=== PATIENT | female | born 1950 | race African-American/Black ===

== ENCOUNTER 2016-11-07 01:59 | Emergency (ER) | payer MEDICARE ==
[2016-11-07 02:29] LABS: BASOPHIL 0.4 % (0-2); EOSINOPHIL 2.3 % (0-7); HCT 35.9 % (37.0-47.0); HGB 12.2 g/dl (12.5-16.0); LYMPHOCYTE 42.6 % (15-48); MCH 31.8 pg (25.0-31.0); MCV 93.5 fL (78.0-100.0); MONOCYTE 8.9 % (0-12); MPV 9.3 fL (6.0-9.5); NEUTROPHIL 45.8 % (41-80); PLT 313 K/uL (150-400); RBC 3.84 M/uL (4.20-5.40); RDW 14.3 % (11.5-14.0); WBC 8.2 K/uL (4.0-10.5)
[2016-11-07 02:38] LABS: INR 0.98 (0.9-1.2); PROTHROMBIN TIME 12.6 SECONDS (11.7-14.0); PTT 24.8 SECONDS (23.2-31.4)
[2016-11-07 02:44] LABS: ALBUMIN 4.3 g/dL (3.4-4.8); BILIRUBIN - TOTAL 0.2 mg/dL (0.1-1.0); CREATININE 0.9 mg/dL (0.5-1.0); GLOBULIN (CALCULATION) 3.1 g/dL (2.2-4.2); MAGNESIUM 1.6 mg/dL (1.40-2.10); POTASSIUM 3.5 mmol/L (3.5-5.1); TOTAL PROTEIN 7.4 g/dL (6.4-8.3)
[2016-11-07 02:46] LABS: MYOGLOBIN 36 ng/mL (26-65); PRO-BNP 57 pg/mL (0-125); TROPONIN T < 0.010 ng/mL
== END 2016-11-07 04:37 | disposition home or self-care (01) ==
LOC: FER 01:59
PROVIDERS: Emergency Medicine
DX: F41.9 Anxiety disorder, unspecified (principal); K29.70 Gastritis, unspecified, without bleeding; I25.10 Atherosclerotic heart disease of native coronary artery without angina pectoris; I11.9 Hypertensive heart disease without heart failure; K21.9 Gastro-esophageal reflux disease without esophagitis; F17.210 Nicotine dependence, cigarettes, uncomplicated; Z88.0 Allergy status to penicillin; Z88.5 Allergy status to narcotic agent; Z88.7 Allergy status to serum and vaccine; Z79.82 Long term (current) use of aspirin; Z79.899 Other long term (current) drug therapy
CPT/HCPCS: 36415; 71010; 80053; 82550; 82553; 83735; 83874; 83880; 84484; 85025; 85610; 85730; 93005

== ENCOUNTER 2016-11-20 19:15 | Day surgery (SDCO) | payer MEDICARE ==
[~2016-11-20] VITALS: Ht 167.6 cm; Wt 90.0 kg
[2016-11-20 20:07] LABS: BASOPHIL 0.3 % (0-2); HCT 34.6 % (37.0-47.0); HGB 11.6 g/dl (12.5-16.0); LYMPHOCYTE 39.7 % (15-48); MCH 31.6 pg (25.0-31.0); MCHC 33.5 g/dL (32.0-36.0); MCV 94.3 fL (78.0-100.0); MONOCYTE 7.8 % (0-12); MPV 9.5 fL (6.0-9.5); NEUTROPHIL 49.2 % (41-80); PLT 265 K/uL (150-400); RBC 3.67 M/uL (4.20-5.40); RDW 14.7 % (11.5-14.0); WBC 6.4 K/uL (4.0-10.5)
[2016-11-20 20:17] LABS: INR 1.02 (0.9-1.2); PTT 25.1 SECONDS (23.2-31.4)
[2016-11-20 20:23] LABS: BILIRUBIN - TOTAL 0.2 mg/dL (0.1-1.0); GLOBULIN (CALCULATION) 2.9 g/dL (2.2-4.2); MAGNESIUM 1.45 mg/dL (1.40-2.10); POTASSIUM 3.8 mmol/L (3.5-5.1); TOTAL PROTEIN 6.9 g/dL (6.4-8.3)
[2016-11-20 20:26] LABS: MYOGLOBIN 34 ng/mL (26-65); PRO-BNP 97 pg/mL (0-125); TROPONIN T < 0.010 ng/mL
[2016-11-21 05:20] LABS: BASOPHIL 0.3 % (0-2); EOSINOPHIL 3.1 % (0-7); HCT 33.3 % (37.0-47.0); HGB 11.3 g/dl (12.5-16.0); LYMPHOCYTE 35.2 % (15-48); MCH 31.8 pg (25.0-31.0); MCHC 33.9 g/dL (32.0-36.0); MCV 93.8 fL (78.0-100.0); MONOCYTE 8.3 % (0-12); MPV 9.6 fL (6.0-9.5); NEUTROPHIL 53.1 % (41-80); PLT 248 K/uL (150-400); RBC 3.55 M/uL (4.20-5.40); RDW 14.6 % (11.5-14.0); WBC 5.8 K/uL (4.0-10.5)
[2016-11-21 05:38] LABS: CREATININE 0.8 mg/dL (0.5-1.0); POTASSIUM 3.4 mmol/L (3.5-5.1)
[2016-11-21 05:42] LABS: TROPONIN T < 0.010 ng/mL
[2016-11-21 11:58] LABS: TROPONIN T < 0.010 ng/mL
[2016-11-21] MEDS ORDERED: K-DUR20 MEQ PO (17:08)
[2016-11-21] MEDS ORDERED: ATENOLOL-CHLOR1 EACH PO (17:09)
[2016-11-21] MEDS ORDERED: FLEXERIL10 MG PO (17:09)
[2016-11-21] MEDS ORDERED: TENORMIN50 MG PO (17:09)
[2016-11-21] MEDS ORDERED: ASPIRIN EC81 MG PO (17:10)
[2016-11-21] MEDS ORDERED: CARAFATE S500 MG/TSP PO (17:10)
[2016-11-21] MEDS ORDERED: ZOLOFT50 MG PO (17:11)
[2016-11-21] MEDS ORDERED: SYNTHROID25 MCG PO (17:11)
[2016-11-21] MEDS ORDERED: PREVACID30 M1 PO (17:11)
[2016-11-21] MEDS ORDERED: NORCO 10-325 T1 EACH PO (17:12)
[2016-11-21] MEDS ORDERED: FLOVENT HF120 PUFFS/ INH (17:12)
[2016-11-21] MEDS ORDERED: COMBIVENT RESPIM4 GM INH (17:12)
[2016-11-21] MEDS ORDERED: ZANTAC150 MG PO (17:12)
[2016-11-21] MEDS ORDERED: CARAFATE1 GM PO (17:13)
[2016-11-21] MEDS ORDERED: IMDUR 30MG TABL30 MG PO (17:14)
== END 2016-11-21 15:00 | disposition home or self-care (01) ==
LOC: FER 19:15 → FTCU 11-21 00:30
PROVIDERS: Emergency Medicine; ADMIT Internal Medicine
DX: R07.9 Chest pain, unspecified (principal); I25.10 Atherosclerotic heart disease of native coronary artery without angina pectoris; I10 Essential (primary) hypertension; E87.6 Hypokalemia; E78.5 Hyperlipidemia, unspecified; J44.9 Chronic obstructive pulmonary disease, unspecified; F41.9 Anxiety disorder, unspecified; F32.9 Major depressive disorder, single episode, unspecified; F17.210 Nicotine dependence, cigarettes, uncomplicated; K21.9 Gastro-esophageal reflux disease without esophagitis; K57.90 Diverticulosis of intestine, part unspecified, without perforation or abscess without bleeding; G50.0 Trigeminal neuralgia; Z95.5 Presence of coronary angioplasty implant and graft; Z82.49 Family history of ischemic heart disease and other diseases of the circulatory system; Z88.0 Allergy status to penicillin; Z88.2 Allergy status to sulfonamides; Z88.5 Allergy status to narcotic agent; Z91.09 Other allergy status, other than to drugs and biological substances; Z83.3 Family history of diabetes mellitus; Z79.899 Other long term (current) drug therapy
CPT/HCPCS: 36415; 71010; 80048; 80053; 80061; 82550; 82553; 83036; 83735; 83874; 83880; 84443; 84484; 85025; 85610; 85730; 93005; G0378; J0500; J3010

== ENCOUNTER → 2017-01-31 | Day surgery (SDC) | payer MEDICARE ==
[~2017-01-31] VITALS: Ht 167.6 cm; Wt 85.3 kg
[~2017-01-31] MED LIST: ASPIRIN EC81 MG PO; ATENOLOL-CHLOR1 EACH PO; CARAFATE S500 MG/TSP PO; CARAFATE1 GM PO; COMBIVENT RESPIM4 GM INH; FLEXERIL10 MG PO; FLOVENT HF120 PUFFS/ INH; IMDUR 30MG TABL30 MG PO; K-DUR20 MEQ PO; NORCO 10-325 T1 EACH PO; PREVACID30 M1 PO; SYNTHROID25 MCG PO; TENORMIN50 MG PO; ZANTAC150 MG PO; ZOLOFT50 MG PO
== END | disposition home or self-care (01) ==
LOC: FAS 11:18
DX: K29.50 Unspecified chronic gastritis without bleeding (principal); K44.9 Diaphragmatic hernia without obstruction or gangrene; K57.30 Diverticulosis of large intestine without perforation or abscess without bleeding; K64.8 Other hemorrhoids; I10 Essential (primary) hypertension; J44.9 Chronic obstructive pulmonary disease, unspecified; E03.9 Hypothyroidism, unspecified; K21.9 Gastro-esophageal reflux disease without esophagitis; D64.9 Anemia, unspecified; F17.210 Nicotine dependence, cigarettes, uncomplicated; Z88.0 Allergy status to penicillin; Z88.8 Allergy status to other drugs, medicaments and biological substances; Z79.82 Long term (current) use of aspirin; Z79.899 Other long term (current) drug therapy; Z90.49 Acquired absence of other specified parts of digestive tract; Z98.890 Other specified postprocedural states; Z90.711 Acquired absence of uterus with remaining cervical stump
CPT/HCPCS: 88305; J2704

== ENCOUNTER 2017-02-15 10:14 | Emergency (ER) | payer MEDICARE | END 2017-02-15 13:46 | disposition home or self-care (01) | LOC: FER 10:14 | DX: S96.911A Strain of unspecified muscle and tendon at ankle and foot level, right foot, initial encounter (principal); I10 Essential (primary) hypertension; K21.9 Gastro-esophageal reflux disease without esophagitis; F17.210 Nicotine dependence, cigarettes, uncomplicated; Z88.0 Allergy status to penicillin; Z88.2 Allergy status to sulfonamides; Z88.7 Allergy status to serum and vaccine; Z88.1 Allergy status to other antibiotic agents; Z91.041 Radiographic dye allergy status; Z98.890 Other specified postprocedural states; Z79.899 Other long term (current) drug therapy; Z79.82 Long term (current) use of aspirin; Z90.711 Acquired absence of uterus with remaining cervical stump; W01.198A Fall on same level from slipping, tripping and stumbling with subsequent striking against other object, initial encounter; Y92.009 Unspecified place in unspecified non-institutional (private) residence as the place of occurrence of the external cause | CPT/HCPCS: 73610; 73630; J1100; J1885 ==

== ENCOUNTER 2020-09-28 07:13 | Emergency (ER) | payer OTHER, SELFPAY ==
[~2020-09-28 07:13] MED LIST changes: +ACETAMINOPHEN325 MG PO; +ANTIVERT25 MG PO; +ASPIRIN325 MG PO; +AZITHROMYCIN250 MG PO; +BACTRIM DS TAB1 EACH PO; +COLCRYS0.6 MG PO; +DICLOFENAC SODI75 MG PO; +FLONASE ALLER15.8 ML; +INDOMETHACIN50 MG PO; +MAG-OXIDE 400M400 MG PO; +PERCOCET 5-3251 EACH PO; +PREDNISONE 20MG20 MG PO; +PRILOSEC20 MG PO; +TESSALON PERLE100 MG PO; +ULTRA-LIGHT RO1 EACH XX; +VENTOLIN HFA IN18 GM INH; +VISTARIL50 MG PO; +VITAMIN D3250 MC2 PO; +ZOFRAN4 MG PO; +ZOFRAN8 MG PO
[2020-09-28 08:18] LABS: BASOPHIL 0.5 % (0-2); EOSINOPHIL 1.8 % (0-7); HCT 37.4 % (37.0-47.0); HGB 12.3 g/dl (12.5-16.0); LYMPHOCYTE 46.3 % (15-48); MCH 29.4 pg (25.0-31.0); MCHC 32.9 g/dL (32.0-36.0); MCV 89.5 fL (78.0-100.0); MPV 10.3 fL (6.0-9.5); NEUTROPHIL 45.1 % (41-80); NRBC 0; PLT 223 K/uL (150-400); RBC 4.18 M/uL (4.20-5.40); RDW 14.8 % (11.5-14.0); WBC 7.4 K/uL (4.0-10.5)
[2020-09-28 08:29] LABS: INR 1.09 (0.9-1.2); PROTHROMBIN TIME 13.4 SECONDS (11.4-13.6); PTT 28.2 SECONDS (22.2-34.7)
[2020-09-28 08:31] LABS: D-DIMER 0.64 ug/mLFEU (0.00-0.41)
[2020-09-28 08:35] LABS: ALBUMIN 3.2 g/dL (3.4-5.0); BILIRUBIN - TOTAL 0.3 mg/dL (0.2-1.0); BUN/CREAT RATIO (CALC) 12.2 RATIO; C-REACTIVE PROTEIN 2.6 mg/dL (<=0.90); CREATININE 0.9 mg/dL (0.51-0.95); TOTAL PROTEIN 7.2 g/dL (6.4-8.2); URIC ACID 7.8 mg/dL (2.6-6.2)
[2020-09-28] MEDS ORDERED: MEDROL 4MG DOSEP4 MG PO (10:08)
[2020-09-28] MEDS ORDERED: COLCHICINE0.6 M1 PO (10:08)
== END 2020-09-28 10:54 | disposition home or self-care (01) ==
LOC: FER 07:13
PROVIDERS: Emergency Medicine
DX: M10.061 Idiopathic gout, right knee (principal)
CPT/HCPCS: 36415; 73560; 80053; 84145; 84550; 85025; 85379; 85610; 85730; 86140; 93971; J1170; J2405; J2930; J7030

== ENCOUNTER 2020-10-03 01:49 | Emergency (ER) | payer OTHER, SELFPAY ==
[~2020-10-03 01:49] MED LIST changes: +COLCHICINE0.6 M1 PO; +MEDROL 4MG DOSEP4 MG PO
[2020-10-03 02:57] LABS: BASOPHIL 0.4 % (0-2); EOSINOPHIL 1.6 % (0-7); HCT 36.3 % (37.0-47.0); LYMPHOCYTE 38.5 % (15-48); MCH 29.5 pg (25.0-31.0); MCHC 33.1 g/dL (32.0-36.0); MCV 89.2 fL (78.0-100.0); MONOCYTE 7.7 % (0-12); MPV 10.6 fL (6.0-9.5); NRBC 0; PLT 236 K/uL (150-400); RBC 4.07 M/uL (4.20-5.40); RDW 14.7 % (11.5-14.0); WBC 7.5 K/uL (4.0-10.5)
[2020-10-03 03:01] LABS: ALBUMIN 3.1 g/dL (3.4-5.0); BILIRUBIN - TOTAL 0.3 mg/dL (0.2-1.0); BUN/CREAT RATIO (CALC) 18.1 RATIO; CREATININE 0.94 mg/dL (0.51-0.95); GLOBULIN (CALCULATION) 4.3 g/dL; POTASSIUM 3.6 mmol/L (3.5-5.1); TOTAL PROTEIN 7.4 g/dL (6.4-8.2)
== END 2020-10-03 05:30 | disposition other institution (70) ==
LOC: FER 01:49
PROVIDERS: Emergency Medicine
DX: R00.2 Palpitations (principal); I21.4 Non-ST elevation (NSTEMI) myocardial infarction; R79.89 Other specified abnormal findings of blood chemistry; I45.10 Unspecified right bundle-branch block; M25.561 Pain in right knee; J45.909 Unspecified asthma, uncomplicated; I50.9 Heart failure, unspecified; F17.200 Nicotine dependence, unspecified, uncomplicated; Z88.5 Allergy status to narcotic agent; Z88.7 Allergy status to serum and vaccine; Z91.048 Other nonmedicinal substance allergy status; Z79.82 Long term (current) use of aspirin; Z79.899 Other long term (current) drug therapy; Z95.5 Presence of coronary angioplasty implant and graft
CPT/HCPCS: 36415; 71045; 80053; 84484; 85025; 85379; 93005; J1644

== ENCOUNTER 2020-10-14 22:53 | Day surgery (SDCO) | payer OTHER, SELFPAY ==
[2020-10-14 23:19] LABS: BASOPHIL 0.6 % (0-2); EOSINOPHIL 1.5 % (0-7); HCT 35.5 % (37.0-47.0); HGB 11.8 g/dl (12.5-16.0); LYMPHOCYTE 47.9 % (15-48); MCH 29.5 pg (25.0-31.0); MCHC 33.2 g/dL (32.0-36.0); MCV 88.8 fL (78.0-100.0); MONOCYTE 6.8 % (0-12); MPV 10.1 fL (6.0-9.5); NEUTROPHIL 42.9 % (41-80); NRBC 0; PLT 262 K/uL (150-400); RDW 14.6 % (11.5-14.0); WBC 7.8 K/uL (4.0-10.5)
[2020-10-14 23:25] LABS: INR 1.06 (0.9-1.2); PROTHROMBIN TIME 13.1 SECONDS (11.4-13.6); PTT 27.8 SECONDS (22.2-34.7)
[2020-10-14 23:33] LABS: ALBUMIN 3.2 g/dL (3.4-5.0); BILIRUBIN - TOTAL 0.2 mg/dL (0.2-1.0); BUN/CREAT RATIO (CALC) 14.9 RATIO; CREATININE 0.87 mg/dL (0.51-0.95); GLOBULIN (CALCULATION) 4.2 g/dL; TOTAL PROTEIN 7.4 g/dL (6.4-8.2)
[2020-10-14 23:46] LABS: POTASSIUM 4.7 mmol/L (3.5-5.1)
[2020-10-15] MEDS ORDERED: COREG 6.25MG6.25 MG PO (03:21)
[2020-10-15] MEDS ORDERED: PLAVIX75 MG PO (03:22)
[2020-10-15] MEDS ORDERED: ALLOPURINOL100 MG PO (03:24)
[2020-10-15] MEDS ORDERED: ASPIRIN EC81 MG PO (03:25)
[2020-10-15] MEDS ORDERED: LIPITOR40 MG PO (03:25)
[2020-10-15] MEDS ORDERED: LASIX40 MG PO (03:30)
[2020-10-15] MEDS ORDERED: ZESTRIL2.5 MG PO (03:31)
[2020-10-15] MEDS ORDERED: POTASSIUM CHLO20 ME2 PO (03:33)
[2020-10-15] MEDS ORDERED: ANTIVERT25 MG PO (03:38)
[2020-10-15] MEDS ORDERED: VOLTAREN100 GM TOP (04:28)
[2020-10-15 05:22] LABS: BUN/CREAT RATIO (CALC) 14.9 RATIO; CREATININE 0.87 mg/dL (0.51-0.95); POTASSIUM 4.9 mmol/L (3.5-5.1)
[2020-10-15 09:01] LABS: BUN/CREAT RATIO (CALC) 16.3 RATIO; CREATININE 0.86 mg/dL (0.51-0.95); POTASSIUM 4.8 mmol/L (3.5-5.1)
--- NOTE | 2020-10-15 11:30 | NUR ---
REPORTS SHE LIVES WITH HER SON; PT REPORTS SHE IS INDEPENDENT; PLEASE ADVISE OF ANY DISCHARGE NEEDS
[2020-10-15 13:07] LABS: BUN/CREAT RATIO (CALC) 14.8 RATIO; CREATININE 0.88 mg/dL (0.51-0.95); POTASSIUM 4.4 mmol/L (3.5-5.1)
[2020-10-16 03:48] LABS: BASOPHIL 0.5 % (0-2); EOSINOPHIL 1.2 % (0-7); HCT 31.9 % (37.0-47.0); HGB 10.6 g/dl (12.5-16.0); LYMPHOCYTE 48.5 % (15-48); MCH 29.7 pg (25.0-31.0); MCHC 33.2 g/dL (32.0-36.0); MCV 89.4 fL (78.0-100.0); MONOCYTE 8.3 % (0-12); MPV 10.3 fL (6.0-9.5); NEUTROPHIL 41.3 % (41-80); NRBC 0; PLT 235 K/uL (150-400); RBC 3.57 M/uL (4.20-5.40); RDW 14.7 % (11.5-14.0); WBC 5.7 K/uL (4.0-10.5)
[2020-10-16 04:40] LABS: BUN/CREAT RATIO (CALC) 14.6 RATIO; CREATININE 0.96 mg/dL (0.51-0.95); POTASSIUM 4.7 mmol/L (3.5-5.1)
[2020-10-16] MEDS ORDERED: PROTONIX 40MG T40 MG PO (12:55)
[2020-10-16] MEDS ORDERED: ISOSORBIDE MONO60 MG PO (12:55)
[2020-10-16] MEDS ORDERED: MAALOX MAXIMUM355 ML PO (12:55)
[2020-10-16] MEDS ORDERED: PRILOSEC20 MG PO (13:11)
--- NOTE | 2020-10-16 14:12 | NUR ---
IV DCD , DISCHARGE INSTRUCTIONS GIVEN TO PATIENT, VERBALIZED UNDERSTANDING OF NEW MEDICATIONS AND SCHEDULE OF CURRENT MEDS. DISCHARGED VIA WHEELCHAIR TO MEET DAUGHTER AT ER DOOR.
== END 2020-10-16 13:27 | disposition home or self-care (01) ==
LOC: FER 22:53 → FICU 10-15 02:15
PROVIDERS: Emergency Medicine; Hospitalist; ADMIT Internal Medicine
DX: R07.2 Precordial pain (principal); I25.119 Atherosclerotic heart disease of native coronary artery with unspecified angina pectoris; I11.9 Hypertensive heart disease without heart failure; J98.11 Atelectasis; D64.9 Anemia, unspecified; E87.1 Hypo-osmolality and hyponatremia; E78.00 Pure hypercholesterolemia, unspecified; Z79.899 Other long term (current) drug therapy; F17.210 Nicotine dependence, cigarettes, uncomplicated; J44.9 Chronic obstructive pulmonary disease, unspecified; K21.9 Gastro-esophageal reflux disease without esophagitis; Z88.0 Allergy status to penicillin; Z20.822 Contact with and (suspected) exposure to COVID-19; Z87.19 Personal history of other diseases of the digestive system; Z95.818 Presence of other cardiac implants and grafts; Z88.2 Allergy status to sulfonamides; Z88.7 Allergy status to serum and vaccine; Z88.8 Allergy status to other drugs, medicaments and biological substances; Z88.6 Allergy status to analgesic agent; Z91.012 Allergy to eggs; Z86.69 Personal history of other diseases of the nervous system and sense organs
CPT/HCPCS: 36415; 71045; 71275; 80048; 80053; 80061; 82150; 83690; 83735; 84484; 85025; 85610; 85730; 93005; C9113; G0378; J1170; J1956; J2405; Q9967; U0002

== ENCOUNTER 2020-10-28 21:23 | Emergency (ER) | payer OTHER, SELFPAY ==
[~2020-10-28 21:23] MED LIST changes: +ALLOPURINOL100 MG PO; +COREG 6.25MG6.25 MG PO; +ISOSORBIDE MONO60 MG PO; +LASIX40 MG PO; +LIPITOR40 MG PO; +MAALOX MAXIMUM355 ML PO; +PLAVIX75 MG PO; +POTASSIUM CHLO20 ME2 PO; +PROTONIX 40MG T40 MG PO; +VOLTAREN100 GM TOP; +ZESTRIL2.5 MG PO
[2020-10-28 22:07] LABS: BASOPHIL 0.5 % (0-2); EOSINOPHIL 1.4 % (0-7); HCT 34.6 % (37.0-47.0); HGB 11.4 g/dl (12.5-16.0); LYMPHOCYTE 39.1 % (15-48); MCH 29.4 pg (25.0-31.0); MCHC 32.9 g/dL (32.0-36.0); MCV 89.2 fL (78.0-100.0); MONOCYTE 9.1 % (0-12); MPV 9.8 fL (6.0-9.5); NEUTROPHIL 49.6 % (41-80); NRBC 0; PLT 260 K/uL (150-400); RBC 3.88 M/uL (4.20-5.40); WBC 8.9 K/uL (4.0-10.5)
[2020-10-28 22:16] LABS: INR 1.12 (0.9-1.2); PROTHROMBIN TIME 13.7 SECONDS (11.4-13.6)
[2020-10-28 22:17] LABS: PTT 29.2 SECONDS (22.2-34.7)
[2020-10-28 22:26] LABS: ALBUMIN 3.4 g/dL (3.4-5.0); BILIRUBIN - TOTAL 0.3 mg/dL (0.2-1.0); CREATININE 0.91 mg/dL (0.51-0.95); POTASSIUM 4.6 mmol/L (3.5-5.1); TOTAL PROTEIN 7.4 g/dL (6.4-8.2)
[2020-10-29] MEDS ORDERED: BENTYL10 MG PO (02:51)
[2020-10-29] MEDS ORDERED: GAS RELIEF 8080 MG PO (02:51)
== END 2020-10-29 03:05 | disposition home or self-care (01) ==
LOC: FER 21:23
PROVIDERS: Emergency Medicine Emergency Medical Services
DX: R10.13 Epigastric pain (principal); E87.1 Hypo-osmolality and hyponatremia; I45.10 Unspecified right bundle-branch block; I25.2 Old myocardial infarction; F17.200 Nicotine dependence, unspecified, uncomplicated; Z90.49 Acquired absence of other specified parts of digestive tract; Z90.710 Acquired absence of both cervix and uterus; Z95.5 Presence of coronary angioplasty implant and graft; Z88.5 Allergy status to narcotic agent; Z88.7 Allergy status to serum and vaccine; Z88.0 Allergy status to penicillin; Z79.899 Other long term (current) drug therapy; Z79.02 Long term (current) use of antithrombotics/antiplatelets
CPT/HCPCS: 36415; 71045; 80053; 83690; 84484; 85025; 85610; 85730; 93005; J2405; Q9967

== ENCOUNTER 2020-11-10 00:57 | Inpatient (IN) | payer OTHER ==
[~2020-11-10 00:57] MED LIST changes: +BENTYL10 MG PO; +GAS RELIEF 8080 MG PO
[2020-11-10 02:16] LABS: BASOPHIL 0.6 % (0-2); EOSINOPHIL 1.8 % (0-7); HCT 32.6 % (37.0-47.0); HGB 11.1 g/dl (12.5-16.0); LYMPHOCYTE 39.1 % (15-48); MCH 29.8 pg (25.0-31.0); MCV 87.6 fL (78.0-100.0); MONOCYTE 7.7 % (0-12); MPV 9.6 fL (6.0-9.5); NEUTROPHIL 50.7 % (41-80); NRBC 0; PLT 289 K/uL (150-400); RBC 3.72 M/uL (4.20-5.40); RDW 15.1 % (11.5-14.0)
[2020-11-10 02:22] LABS: BILIRUBIN NEGATIVE (NEGATIVE); BLOOD NEGATIVE Ery/uL (NEGATIVE); CLARITY CLEAR (CLEAR); COLOR YELLOW (YELLOW); GLUCOSE (U) NORMAL (NORMAL); LEUKOCYTES NEGATIVE Leu/uL (NEGATIVE); NITRITE NEGATIVE (NEGATIVE); PROTEIN NEGATIVE (NEGATIVE); UROBILINOGEN 0.2 mg/dL (0.2-1.0); pH 7.5 (5.0-9.0)
[2020-11-10 04:54] LABS: ALBUMIN 3.1 g/dL (3.4-5.0); BILIRUBIN - TOTAL 0.3 mg/dL (0.2-1.0); BUN/CREAT RATIO (CALC) 14.1 RATIO; C-REACTIVE PROTEIN 1.1 mg/dL (<=0.90); CREATININE 0.92 mg/dL (0.51-0.95); FT4 (FREE T4) 1.2 ng/dL (0.76-1.46); GLOBULIN (CALCULATION) 4.1 g/dL; POTASSIUM 4.3 mmol/L (3.5-5.1); TOTAL PROTEIN 7.2 g/dL (6.4-8.2)
[2020-11-10] MEDS ORDERED: ULORIC40 MG PO (07:47)
[2020-11-10 08:29] LABS: BUN/CREAT RATIO (CALC) 12.6 RATIO; CREATININE 0.87 mg/dL (0.51-0.95); MAGNESIUM 1.6 mg/dL (1.8-2.4); PHOSPHORUS 3.4 mg/dL (2.6-4.7); POTASSIUM 4.4 mmol/L (3.5-5.1)
[2020-11-11 08:15] LABS: BUN/CREAT RATIO (CALC) 13.8 RATIO; CREATININE 0.87 mg/dL (0.51-0.95); POTASSIUM 4.2 mmol/L (3.5-5.1)
[2020-11-11 08:17] LABS: HCT 34.7 % (37.0-47.0); HGB 11.7 g/dl (12.5-16.0); MCH 29.3 pg (25.0-31.0); MCHC 33.7 g/dL (32.0-36.0); MPV 9.6 fL (6.0-9.5); RBC 3.99 M/uL (4.20-5.40); RDW 14.7 % (11.5-14.0); WBC 5.6 K/uL (4.0-10.5)
[2020-11-11] MEDS ORDERED: LOSARTAN POTASS25 MG PO (09:31)
[2020-11-11] MEDS ORDERED: TESSALON PERLE100 M1 PO (09:34)
--- NOTE | 2020-11-11 10:27 | NUR ---
11/11/20 Ms. Mcmullen and her son share a home together. She was independent in the home prior to admission. A referral was made to A per patient choice; affliation explained.
== END 2020-11-11 11:30 | disposition home health service (06) | DRG 641 ==
LOC: FER 00:57 → FICU 05:58
PROVIDERS: Emergency Medicine Emergency Medical Services; Hospitalist; ADMIT Internal Medicine
DX: E87.1 Hypo-osmolality and hyponatremia (principal); Z20.822 Contact with and (suspected) exposure to COVID-19; R77.8 Other specified abnormalities of plasma proteins; R10.13 Epigastric pain; I25.10 Atherosclerotic heart disease of native coronary artery without angina pectoris; E78.5 Hyperlipidemia, unspecified; J44.9 Chronic obstructive pulmonary disease, unspecified; F41.9 Anxiety disorder, unspecified; F32.9 Major depressive disorder, single episode, unspecified; K57.90 Diverticulosis of intestine, part unspecified, without perforation or abscess without bleeding; F17.210 Nicotine dependence, cigarettes, uncomplicated; I10 Essential (primary) hypertension; K21.9 Gastro-esophageal reflux disease without esophagitis; I45.10 Unspecified right bundle-branch block; I25.2 Old myocardial infarction; Z95.5 Presence of coronary angioplasty implant and graft; Z79.82 Long term (current) use of aspirin; Z79.02 Long term (current) use of antithrombotics/antiplatelets; Z79.51 Long term (current) use of inhaled steroids; Z79.899 Other long term (current) drug therapy; Z88.0 Allergy status to penicillin; Z88.2 Allergy status to sulfonamides; Z88.5 Allergy status to narcotic agent; Z88.1 Allergy status to other antibiotic agents; Z91.012 Allergy to eggs; Z88.7 Allergy status to serum and vaccine; Z88.8 Allergy status to other drugs, medicaments and biological substances; Z98.890 Other specified postprocedural states; Z90.710 Acquired absence of both cervix and uterus; Z90.49 Acquired absence of other specified parts of digestive tract
CPT/HCPCS: 36415; 71045; 80048; 80053; 81003; 82607; 82746; 83605; 83690; 83735; 84100; 84439; 84443; 84484; 85025; 86140; 93005; 94010; 94640; J1170; J1650; J2405; J7030; J7120; U0002

== ENCOUNTER 2020-11-27 00:41 | Emergency (ER) | payer OTHER, SELFPAY ==
[~2020-11-27 00:41] MED LIST changes: +LOSARTAN POTASS25 MG PO; +TESSALON PERLE100 M1 PO; +ULORIC40 MG PO
[2020-11-27 01:15] LABS: BASOPHIL 0.7 % (0-2); EOSINOPHIL 3.3 % (0-7); HGB 11.2 g/dl (12.5-16.0); LYMPHOCYTE 29.9 % (15-48); MCH 29.2 pg (25.0-31.0); MCHC 32.9 g/dL (32.0-36.0); MCV 88.8 fL (78.0-100.0); MONOCYTE 7.5 % (0-12); MPV 9.9 fL (6.0-9.5); NEUTROPHIL 58.4 % (41-80); NRBC 0; PLT 309 K/uL (150-400); RBC 3.83 M/uL (4.20-5.40); RDW 15.6 % (11.5-14.0); WBC 8.8 K/uL (4.0-10.5)
[2020-11-27 01:26] LABS: ALBUMIN 2.9 g/dL (3.4-5.0); BILIRUBIN - TOTAL 0.2 mg/dL (0.2-1.0); BUN/CREAT RATIO (CALC) 15.8 RATIO; CREATININE 0.76 mg/dL (0.51-0.95); POTASSIUM 4.3 mmol/L (3.5-5.1); TOTAL PROTEIN 7.9 g/dL (6.4-8.2)
== END 2020-11-27 03:53 | disposition home or self-care (01) ==
LOC: FER 00:41
PROVIDERS: Emergency Medicine
DX: R07.89 Other chest pain (principal); R05 Cough; R06.2 Wheezing; I45.10 Unspecified right bundle-branch block; I10 Essential (primary) hypertension; I25.10 Atherosclerotic heart disease of native coronary artery without angina pectoris; E78.5 Hyperlipidemia, unspecified; J44.9 Chronic obstructive pulmonary disease, unspecified; F17.200 Nicotine dependence, unspecified, uncomplicated; Z98.890 Other specified postprocedural states; Z79.899 Other long term (current) drug therapy; Z79.82 Long term (current) use of aspirin; Z79.02 Long term (current) use of antithrombotics/antiplatelets; Z87.19 Personal history of other diseases of the digestive system
CPT/HCPCS: 36415; 71045; 80053; 83605; 83880; 84484; 85025; 87040; 93005; J0780; J1885

== ENCOUNTER 2020-12-04 03:20 | Emergency (ER) | payer OTHER, SELFPAY ==
[2020-12-04 04:15] LABS: BASOPHIL 0.4 % (0-2); EOSINOPHIL 1.1 % (0-7); HCT 33.8 % (37.0-47.0); HGB 11.3 g/dl (12.5-16.0); LYMPHOCYTE 34.2 % (15-48); MCH 29.4 pg (25.0-31.0); MCHC 33.4 g/dL (32.0-36.0); MONOCYTE 8.5 % (0-12); MPV 9.7 fL (6.0-9.5); NEUTROPHIL 55.5 % (41-80); NRBC 0; PLT 317 K/uL (150-400); RBC 3.84 M/uL (4.20-5.40); RDW 15.8 % (11.5-14.0); WBC 9.2 K/uL (4.0-10.5)
[2020-12-04 04:18] LABS: BILIRUBIN NEGATIVE (NEGATIVE); BLOOD NEGATIVE Ery/uL (NEGATIVE); CLARITY CLEAR (CLEAR); COLOR YELLOW (YELLOW); GLUCOSE (U) NORMAL (NORMAL); LEUKOCYTES NEGATIVE Leu/uL (NEGATIVE); NITRITE NEGATIVE (NEGATIVE); PROTEIN NEGATIVE (NEGATIVE); UROBILINOGEN 0.2 mg/dL (0.2-1.0); pH 6.5 (5.0-9.0)
[2020-12-04 04:42] LABS: BILIRUBIN - TOTAL 0.2 mg/dL (0.2-1.0); BUN/CREAT RATIO (CALC) 17.2 RATIO; CREATININE 0.99 mg/dL (0.51-0.95); GLOBULIN (CALCULATION) 4.7 g/dL; MAGNESIUM 1.9 mg/dL (1.8-2.4); POTASSIUM 4.4 mmol/L (3.5-5.1); TOTAL PROTEIN 7.7 g/dL (6.4-8.2)
== END 2020-12-04 07:41 | disposition home or self-care (01) ==
LOC: FER 03:20
PROVIDERS: Emergency Medicine
DX: J06.9 Acute upper respiratory infection, unspecified (principal); H92.02 Otalgia, left ear; R11.2 Nausea with vomiting, unspecified; R14.0 Abdominal distension (gaseous); I10 Essential (primary) hypertension; I25.10 Atherosclerotic heart disease of native coronary artery without angina pectoris; E11.9 Type 2 diabetes mellitus without complications; F17.210 Nicotine dependence, cigarettes, uncomplicated; Z88.0 Allergy status to penicillin; Z88.2 Allergy status to sulfonamides; Z88.5 Allergy status to narcotic agent; Z88.7 Allergy status to serum and vaccine; Z88.1 Allergy status to other antibiotic agents; Z20.822 Contact with and (suspected) exposure to COVID-19
CPT/HCPCS: 36415; 80053; 81003; 83605; 83690; 83735; 84145; 84484; 85025; 93005; J1170; J2765; J3490; J7030; U0002

== ENCOUNTER 2020-12-16 03:26 | Inpatient (IN) | payer OTHER ==
[2020-12-16 04:34] LABS: BASOPHIL 0.3 % (0-2); EOSINOPHIL 1.5 % (0-7); HCT 34.5 % (37.0-47.0); HGB 11.5 g/dl (12.5-16.0); LYMPHOCYTE 25.9 % (15-48); MCH 29.3 pg (25.0-31.0); MCHC 33.3 g/dL (32.0-36.0); MONOCYTE 7.6 % (0-12); MPV 10.1 fL (6.0-9.5); NEUTROPHIL 64.5 % (41-80); NRBC 0; PLT 259 K/uL (150-400); RBC 3.92 M/uL (4.20-5.40); RDW 15.8 % (11.5-14.0); WBC 8.7 K/uL (4.0-10.5)
[2020-12-16 04:46] LABS: ALBUMIN 2.9 g/dL (3.4-5.0); BILIRUBIN - TOTAL 0.2 mg/dL (0.2-1.0); BUN/CREAT RATIO (CALC) 10.8 RATIO; CREATININE 0.93 mg/dL (0.51-0.95); GLOBULIN (CALCULATION) 4.1 g/dL; POTASSIUM 4.2 mmol/L (3.5-5.1)
[2020-12-16 06:04] LABS: CORONAVIRUS 2019 SARS-COV-2 NEGATIVE (NEGATIVE); INFLUENZA A NAA NEGATIVE (NEGATIVE)
[2020-12-16] MEDS ORDERED: COZAAR25 MG PO (07:23)
[2020-12-16] MEDS ORDERED: PLAVIX75 MG PO (07:23)
[2020-12-16] MEDS ORDERED: COREG 6.25MG6.25 MG PO (07:24)
[2020-12-16] MEDS ORDERED: LASIX40 MG PO (07:25)
[2020-12-16] MEDS ORDERED: TESSALON PERLE100 M1 PO (07:25)
[2020-12-16] MEDS ORDERED: ASPIRIN EC81 MG PO (07:26)
[2020-12-16] MEDS ORDERED: ZOFRAN4 M1 PO (07:26)
[2020-12-16] MEDS ORDERED: PRILOSEC20 MG PO (07:27)
[2020-12-16] MEDS ORDERED: ISOSORBIDE MONO10 MG PO (07:28)
[2020-12-16] MEDS ORDERED: MAG-OXIDE 400M400 MG PO (07:29)
[2020-12-16] MEDS ORDERED: FLONASE ALLER15.8 ML (07:29)
[2020-12-16] MEDS ORDERED: ZOLOFT50 MG PO (07:29)
[2020-12-16] MEDS ORDERED: NORCO 5-325 TA1 EACH PO (07:31)
[2020-12-16] MEDS ORDERED: ANTIVERT25 MG PO (07:32)
[2020-12-16] MEDS ORDERED: ULORIC40 MG PO (07:32)
[2020-12-16] MEDS ORDERED: IPRATROPIUM0.2 MG/ML INH (07:34)
[2020-12-16] MEDS ORDERED: VENTOLIN (1.25 MG/3 INH (07:35)
[2020-12-16 07:46] LABS: LACTIC ACID 1.3 mmol/L (0.4-1.9)
[2020-12-17 05:52] LABS: BASOPHIL 0.4 % (0-2); EOSINOPHIL 1.6 % (0-7); HGB 11.1 g/dl (12.5-16.0); LYMPHOCYTE 33.4 % (15-48); MCH 29.8 pg (25.0-31.0); MCHC 33.6 g/dL (32.0-36.0); MCV 88.5 fL (78.0-100.0); MONOCYTE 7.8 % (0-12); MPV 9.9 fL (6.0-9.5); NEUTROPHIL 56.6 % (41-80); NRBC 0; PLT 202 K/uL (150-400); RBC 3.73 M/uL (4.20-5.40); RDW 15.5 % (11.5-14.0); WBC 5.7 K/uL (4.0-10.5)
[2020-12-17 06:19] LABS: ALBUMIN 2.5 g/dL (3.4-5.0); BILIRUBIN - TOTAL 0.3 mg/dL (0.2-1.0); BUN/CREAT RATIO (CALC) 12.8 RATIO; CREATININE 0.86 mg/dL (0.51-0.95); POTASSIUM 3.8 mmol/L (3.5-5.1); TOTAL PROTEIN 6.5 g/dL (6.4-8.2)
--- NOTE | 2020-12-17 14:43 | NUR ---
PT. RESIDES WITH SON. PT. WANTS OUTPT THERAPY AT [facility]. APPT HAS NOT BEEN MADE THERE IS NO D/C DATE.
[2020-12-19 05:47] LABS: BASOPHIL 0.3 % (0-2); EOSINOPHIL 1.3 % (0-7); HCT 33.1 % (37.0-47.0); HGB 10.9 g/dl (12.5-16.0); LYMPHOCYTE 34.5 % (15-48); MCH 28.7 pg (25.0-31.0); MCHC 32.9 g/dL (32.0-36.0); MCV 87.1 fL (78.0-100.0); MONOCYTE 7.9 % (0-12); MPV 9.7 fL (6.0-9.5); NEUTROPHIL 55.7 % (41-80); NRBC 0; PLT 221 K/uL (150-400); RDW 15.4 % (11.5-14.0); WBC 6.7 K/uL (4.0-10.5)
[2020-12-19 06:02] LABS: BUN/CREAT RATIO (CALC) 14.7 RATIO; CREATININE 0.75 mg/dL (0.51-0.95); MAGNESIUM 1.6 mg/dL (1.8-2.4); POTASSIUM 4.1 mmol/L (3.5-5.1)
[2020-12-20 04:26] LABS: BASOPHIL 0.3 % (0-2); EOSINOPHIL 1.4 % (0-7); HCT 32.7 % (37.0-47.0); HGB 10.9 g/dl (12.5-16.0); LYMPHOCYTE 33.2 % (15-48); MCH 29.4 pg (25.0-31.0); MCHC 33.3 g/dL (32.0-36.0); MCV 88.1 fL (78.0-100.0); MONOCYTE 8.2 % (0-12); MPV 9.5 fL (6.0-9.5); NEUTROPHIL 56.5 % (41-80); NRBC 0; PLT 219 K/uL (150-400); RBC 3.71 M/uL (4.20-5.40); RDW 15.8 % (11.5-14.0); WBC 7.3 K/uL (4.0-10.5)
[2020-12-20 04:47] LABS: BUN/CREAT RATIO (CALC) 17.3 RATIO; CREATININE 0.81 mg/dL (0.51-0.95); MAGNESIUM 2.1 mg/dL (1.8-2.4); POTASSIUM 4.2 mmol/L (3.5-5.1); VANCOMYCIN, TROUGH 16.4 ug/mL (10-20)
--- NOTE | 2020-12-20 15:59 | NUR ---
DR. NGUYEN IS RECOMMENDING PT. TO D/C WITH HH FOR IV ABX. ADVISED DR. NGUYEN THAT PT. WILL NEED A PICC LINE SHE HAS A PERIPHERAL IV.
--- NOTE | 2020-12-21 00:46 | NUR ---
Ida TAYLOR APRN NOTIFIED OF PT REQUESTING MED FOR YEAST INF.
--- NOTE | 2020-12-21 00:47 | NUR ---
2330 K BRANDON FLETCHER NOTIFIED OF PT REQUESTING ATIVAN
[2020-12-21 06:16] LABS: HCT 33.6 % (37.0-47.0); HGB 10.9 g/dl (12.5-16.0); MCH 29.7 pg (25.0-31.0); MCHC 32.4 g/dL (32.0-36.0); MCV 91.6 fL (78.0-100.0); MPV 9.7 fL (6.0-9.5); RBC 3.67 M/uL (4.20-5.40); WBC 6.7 K/uL (4.0-10.5)
[2020-12-21 06:41] LABS: BUN/CREAT RATIO (CALC) 16.2 RATIO; CREATININE 0.74 mg/dL (0.51-0.95); POTASSIUM 4.3 mmol/L (3.5-5.1)
--- NOTE | 2020-12-21 13:10 | NUR ---
1215 MIDLINE ORDERED BECAUSE OF POOR VENOUS ACCESS. PROCEDURE WAS EXPLAINED TO PT AND PT AGREED TO THE PROCEDURE. PT PREEPED AND DRAPED INSTERILE FASHION. THE PT'S LEFT UPPER ARM BASILIC VEIN WAS VISUALIZED USING THE SITE RITE 6 US MACHINE. A 21 GAUGE GUIDE NEEDLE WAS USED. COULD NOT THREAD THE GUIDE WIRE SO ANOTHER SITE WAS FOUND AND VISUALIZED PER US MACHINE. THE AREA WAS NUMBED WITH 1% LIDOCAINE. A 21 GAUGE NEEDLE WAS USED WITH GOOD BLOOD RETURN THE GUIDE WIRE THREADED EASILY.THE NEEDLE WAS REMOVED AND THE MIDLINE CATHETER WAS PLACED OVER THE WIRE. THE WIRE AND SHEATH WERE REMOVED. GOOD BLOOD RETURN WAS NOTED. A CONNECTOR WAS FLUSHED AND PLACED OVER THE END OF THE CATHETER. A STAT LOCK WAS PLACED ON THE CATHETER AND A BIOPATCH WAS PLACED ON THE TOP OF THE INSERTION SITE. A STERILE TEGADERM WAS PLACED OVER THE MIDLINE CATHETER. PT TOLERATED THE PROCEDURE WELL. PT HAS A 20G 10CM POWERGLIDE MIDLINE CATHETER. GOOD FOR 29 DAYS. THIS IS NOT A CENTRAL LINE. REPORT WAS GIVEN TO Silvia MENCHACA. THE PATIENT'S BED WAS LOWERED BACK DOWN TO THE FLOOR LEVEL, SIDE RAILS UP X 2 AT THE TOP. CALL LIGHT WAS WITHIN REACH.
--- NOTE | 2020-12-22 14:52 | NUR ---
FAXED COPY OF NEW COVID TEST TO [facility].
[2020-12-23] MEDS ORDERED: ZOSYN3.375 GM IV (14:05)
== END 2020-12-23 17:55 | DRG 177 ==
LOC: FER 03:26 → FMS 05:49
PROVIDERS: Emergency Medicine Emergency Medical Services; Hospitalist; Nurse Practitioner; ADMIT Internal Medicine
PROC: 05HC33Z Insertion of Infusion Device into Left Basilic Vein, Percutaneous Approach (ICD-10-PCS; principal; 2020-12-21)
DX: J15.1 Pneumonia due to Pseudomonas (principal); I21.A1 Myocardial infarction type 2; J44.0 Chronic obstructive pulmonary disease with (acute) lower respiratory infection; R04.2 Hemoptysis; I10 Essential (primary) hypertension; E78.5 Hyperlipidemia, unspecified; I25.10 Atherosclerotic heart disease of native coronary artery without angina pectoris; Z95.5 Presence of coronary angioplasty implant and graft; Z20.822 Contact with and (suspected) exposure to COVID-19; F17.210 Nicotine dependence, cigarettes, uncomplicated; I25.2 Old myocardial infarction; K21.9 Gastro-esophageal reflux disease without esophagitis; K31.84 Gastroparesis; G50.0 Trigeminal neuralgia; F41.9 Anxiety disorder, unspecified; F32.9 Major depressive disorder, single episode, unspecified; K57.90 Diverticulosis of intestine, part unspecified, without perforation or abscess without bleeding; Z91.012 Allergy to eggs; Z88.5 Allergy status to narcotic agent; Z88.0 Allergy status to penicillin; Z88.2 Allergy status to sulfonamides; Z88.7 Allergy status to serum and vaccine; Z91.048 Other nonmedicinal substance allergy status; Z79.82 Long term (current) use of aspirin; Z79.899 Other long term (current) drug therapy; Z79.01 Long term (current) use of anticoagulants; Z90.49 Acquired absence of other specified parts of digestive tract; J01.90 Acute sinusitis, unspecified; Y95 Nosocomial condition
CPT/HCPCS: 36415; 71045; 71250; 80048; 80053; 80202; 83605; 83735; 83880; 84145; 84484; 85025; 87040; 87070; 87077; 87186; 87205; 93005; 94640; 94664; 94667; 94668; 97116; 97162; 97165; 97530-GP; 97535; C1751; J0696; J1170; J1642; J1650; J1956; J2185; J2405; J2543; J3370; J3410; J3475; J7040; U0002

== ENCOUNTER 2021-01-26 19:27 | Day surgery (SDCO) | payer OTHER ==
[~2021-01-26] VITALS: Ht 167.6 cm; Wt 86.8 kg
[~2021-01-26 19:27] MED LIST changes: +COZAAR25 MG PO; +IPRATROPIUM0.2 MG/ML INH; +ISOSORBIDE MONO10 MG PO; +NORCO 5-325 TA1 EACH PO; +VENTOLIN (1.25 MG/3 INH; +ZOFRAN4 M1 PO; +ZOSYN3.375 GM IV
[2021-01-26 20:03] LABS: INR 1.03 (0.9-1.2); PROTHROMBIN TIME 12.8 SECONDS (11.4-13.6)
[2021-01-26 20:10] LABS: ALBUMIN 3.2 g/dL (3.4-5.0); BILIRUBIN - TOTAL 0.2 mg/dL (0.2-1.0); BUN/CREAT RATIO (CALC) 10.2 RATIO; CREATININE 1.08 mg/dL (0.51-0.95); GLOBULIN (CALCULATION) 3.9 g/dL; POTASSIUM 4.4 mmol/L (3.5-5.1); TOTAL PROTEIN 7.1 g/dL (6.4-8.2)
[2021-01-26 20:26] LABS: BASOPHIL 0.3 % (0-2); EOSINOPHIL 2.2 % (0-7); HCT 33.7 % (37.0-47.0); HGB 11.4 g/dl (12.5-16.0); LYMPHOCYTE 40.8 % (15-48); MCH 29.6 pg (25.0-31.0); MCHC 33.8 g/dL (32.0-36.0); MCV 87.5 fL (78.0-100.0); MPV 10.3 fL (6.0-9.5); NEUTROPHIL 48.6 % (41-80); NRBC 0; PLT 256 K/uL (150-400); RBC 3.85 M/uL (4.20-5.40); RDW 16.1 % (11.5-14.0); WBC 7.4 K/uL (4.0-10.5)
[2021-01-27] MEDS ORDERED: VICODIN 10/3251 EACH PO (05:05)
[2021-01-27 06:04] LABS: BASOPHIL 0.4 % (0-2); EOSINOPHIL 2.2 % (0-7); HCT 33.2 % (37.0-47.0); HGB 11.1 g/dl (12.5-16.0); LYMPHOCYTE 46.3 % (15-48); MCH 29.5 pg (25.0-31.0); MCHC 33.4 g/dL (32.0-36.0); MCV 88.3 fL (78.0-100.0); MONOCYTE 7.3 % (0-12); MPV 10.3 fL (6.0-9.5); NEUTROPHIL 43.6 % (41-80); NRBC 0; PLT 219 K/uL (150-400); RBC 3.76 M/uL (4.20-5.40); WBC 5.5 K/uL (4.0-10.5)
[2021-01-27 06:22] LABS: BUN/CREAT RATIO (CALC) 10.1 RATIO; CREATININE 0.89 mg/dL (0.51-0.95); POTASSIUM 4.6 mmol/L (3.5-5.1)
[2021-01-28 06:18] LABS: BASOPHIL 0.7 % (0-2); EOSINOPHIL 2.3 % (0-7); HCT 34.4 % (37.0-47.0); HGB 11.4 g/dl (12.5-16.0); LYMPHOCYTE 47.7 % (15-48); MCH 28.9 pg (25.0-31.0); MCHC 33.1 g/dL (32.0-36.0); MCV 87.1 fL (78.0-100.0); MONOCYTE 7.1 % (0-12); MPV 10.2 fL (6.0-9.5); NEUTROPHIL 41.9 % (41-80); NRBC 0; PLT 218 K/uL (150-400); RBC 3.95 M/uL (4.20-5.40); RDW 15.8 % (11.5-14.0); WBC 5.7 K/uL (4.0-10.5)
[2021-01-28 06:43] LABS: BUN/CREAT RATIO (CALC) 10.6 RATIO; CREATININE 1.13 mg/dL (0.51-0.95); POTASSIUM 4.1 mmol/L (3.5-5.1)
[2021-01-28 06:57] LABS: CKMB 0.5 ng/mL (0.0-3.6)
--- NOTE | 2021-01-28 07:13 | NUR ---
0705 Lab called and reported troponin of 0.107. Provider Jose David Chase informed with no orders received.
== END 2021-01-28 12:58 | disposition home or self-care (01) ==
LOC: FER 19:27 → FTCU 01-27 03:34
PROVIDERS: Emergency Medicine; Internal Medicine Cardiovascular Disease; Nurse Practitioner; ADMIT Internal Medicine
DX: I25.119 Atherosclerotic heart disease of native coronary artery with unspecified angina pectoris (principal); R77.8 Other specified abnormalities of plasma proteins; R07.89 Other chest pain; R10.13 Epigastric pain; I11.9 Hypertensive heart disease without heart failure; I25.2 Old myocardial infarction; J44.9 Chronic obstructive pulmonary disease, unspecified; R94.31 Abnormal electrocardiogram [ECG] [EKG]; E78.5 Hyperlipidemia, unspecified; I45.10 Unspecified right bundle-branch block; K21.9 Gastro-esophageal reflux disease without esophagitis; F17.210 Nicotine dependence, cigarettes, uncomplicated; Z20.822 Contact with and (suspected) exposure to COVID-19; E66.3 Overweight; Z68.29 Body mass index [BMI] 29.0-29.9, adult; Z79.02 Long term (current) use of antithrombotics/antiplatelets; Z79.82 Long term (current) use of aspirin; Z79.899 Other long term (current) drug therapy; Z88.0 Allergy status to penicillin; Z88.1 Allergy status to other antibiotic agents; Z88.2 Allergy status to sulfonamides; Z88.5 Allergy status to narcotic agent; Z88.7 Allergy status to serum and vaccine; Z88.8 Allergy status to other drugs, medicaments and biological substances; Z91.012 Allergy to eggs; Z91.013 Allergy to seafood; Z91.02 Food additives allergy status; Z95.5 Presence of coronary angioplasty implant and graft
CPT/HCPCS: 36415; 71045; 80048; 80053; 80061; 82553; 83690; 83880; 84484; 85025; 85610; 85730; 93005; 94640; G0378; J1650; U0002

== ENCOUNTER 2021-02-16 06:22 | Day surgery (SDCO) | payer OTHER ==
[~2021-02-16] VITALS: Ht 167.6 cm; Wt 84.8 kg
[~2021-02-16 06:22] MED LIST changes: +VICODIN 10/3251 EACH PO
[2021-02-16 06:59] LABS: BASOPHIL 0.4 % (0-2); EOSINOPHIL 1.7 % (0-7); HCT 36.7 % (37.0-47.0); HGB 11.8 g/dl (12.5-16.0); LYMPHOCYTE 41.3 % (15-48); MCH 28.8 pg (25.0-31.0); MCHC 32.2 g/dL (32.0-36.0); MCV 89.5 fL (78.0-100.0); MONOCYTE 4.7 % (0-12); NEUTROPHIL 51.8 % (41-80); NRBC 0; PLT 284 K/uL (150-400); RDW 16.7 % (11.5-14.0); WBC 7.1 K/uL (4.0-10.5)
[2021-02-16 07:04] LABS: INR 0.99 (0.9-1.2); PROTHROMBIN TIME 12.4 SECONDS (11.4-13.6); PTT 26.4 SECONDS (22.2-34.7)
[2021-02-16 07:13] LABS: ALBUMIN 3.2 g/dL (3.4-5.0); BILIRUBIN - TOTAL 0.2 mg/dL (0.2-1.0); BUN/CREAT RATIO (CALC) 11.8 RATIO; CREATININE 0.85 mg/dL (0.51-0.95); GLOBULIN (CALCULATION) 4.7 g/dL; POTASSIUM 3.7 mmol/L (3.5-5.1); TOTAL PROTEIN 7.9 g/dL (6.4-8.2)
[2021-02-16 07:32] LABS: BILIRUBIN NEGATIVE (NEGATIVE); BLOOD NEGATIVE Ery/uL (NEGATIVE); CLARITY CLEAR (CLEAR); COLOR YELLOW (YELLOW); GLUCOSE (U) NORMAL (NORMAL); LEUKOCYTES NEGATIVE Leu/uL (NEGATIVE); NITRITE NEGATIVE (NEGATIVE); PROTEIN NEGATIVE (NEGATIVE); UROBILINOGEN 0.2 mg/dL (0.2-1.0)
[2021-02-16 07:38] LABS: SQUAMOUS EPITHELIAL CELLS RARE; URINARY WBC RARE
[2021-02-16] MEDS ORDERED: PROTONIX 40MG T40 MG PO (10:41)
[2021-02-16] MEDS ORDERED: ALLOPURINOL100 MG PO (10:44)
[2021-02-16] MEDS ORDERED: CARAFATE1 GM PO (10:44)
[2021-02-16] MEDS ORDERED: LIPITOR40 MG PO (10:45)
[2021-02-16] MEDS ORDERED: COLCRYS0.6 MG PO (10:45)
[2021-02-16] MEDS ORDERED: ZESTRIL2.5 MG PO (10:46)
[2021-02-16] MEDS ORDERED: VENTOLIN HFA IN18 GM INH (10:48)
[2021-02-16] MEDS ORDERED: THERA-D100 MCG PO (10:51)
[2021-02-16] MEDS ORDERED: KLOR-CON M20 T20 MEQ PO (10:52)
[2021-02-16] MEDS ORDERED: MAG-OXIDE 400M400 MG PO (11:15)
[2021-02-16] MEDS ORDERED: VITAMIN D310 MC4 PO (11:18)
[2021-02-16] MEDS ORDERED: ANTIVERT25 MG PO (11:19)
[2021-02-16] MEDS ORDERED: PRILOSEC20 MG PO (11:20)
[2021-02-16] MEDS ORDERED: [UNRECOGNIZED DRUG - CODE] (11:21)
[2021-02-16] MEDS ORDERED: GAS RELIEF80 MG PO (11:24)
[2021-02-17 05:58] LABS: BASOPHIL 0.5 % (0-2); EOSINOPHIL 1.7 % (0-7); HCT 33.7 % (37.0-47.0); HGB 10.9 g/dl (12.5-16.0); LYMPHOCYTE 45.9 % (15-48); MCH 28.9 pg (25.0-31.0); MCHC 32.3 g/dL (32.0-36.0); MCV 89.4 fL (78.0-100.0); MONOCYTE 6.2 % (0-12); NEUTROPHIL 45.5 % (41-80); NRBC 0; PLT 248 K/uL (150-400); RBC 3.77 M/uL (4.20-5.40); RDW 16.6 % (11.5-14.0)
[2021-02-17 06:18] LABS: BUN/CREAT RATIO (CALC) 12.5 RATIO; CREATININE 0.88 mg/dL (0.51-0.95); POTASSIUM 3.8 mmol/L (3.5-5.1)
--- NOTE | 2021-02-17 08:53 | NUR ---
0806 PT DISCHARGE INSTRUCTIONS REVIEWED WITH PT. PT VERBALIZED UNDERSTANDING. IV DC'D ATT HIS TIME, PT TOLERATED WELL. PT TRANSPORTED TO CAR VIA WHEELCHAIR.
== END 2021-02-17 08:55 | disposition home or self-care (01) ==
LOC: FER 06:22 → FTCU 09:02
PROVIDERS: Emergency Medicine; ADMIT Internal Medicine
DX: I25.110 Atherosclerotic heart disease of native coronary artery with unstable angina pectoris (principal); I10 Essential (primary) hypertension; E78.5 Hyperlipidemia, unspecified; J44.9 Chronic obstructive pulmonary disease, unspecified; F41.1 Generalized anxiety disorder; F32.9 Major depressive disorder, single episode, unspecified; K21.9 Gastro-esophageal reflux disease without esophagitis; J45.909 Unspecified asthma, uncomplicated; I25.2 Old myocardial infarction; Z95.5 Presence of coronary angioplasty implant and graft; Z90.49 Acquired absence of other specified parts of digestive tract; Z82.49 Family history of ischemic heart disease and other diseases of the circulatory system; F17.210 Nicotine dependence, cigarettes, uncomplicated; Z88.0 Allergy status to penicillin; Z88.2 Allergy status to sulfonamides; Z88.5 Allergy status to narcotic agent; Z88.1 Allergy status to other antibiotic agents; Z88.8 Allergy status to other drugs, medicaments and biological substances; Z79.82 Long term (current) use of aspirin; Z79.02 Long term (current) use of antithrombotics/antiplatelets; G50.0 Trigeminal neuralgia; M54.9 Dorsalgia, unspecified; G89.29 Other chronic pain; I45.10 Unspecified right bundle-branch block; Z20.822 Contact with and (suspected) exposure to COVID-19
CPT/HCPCS: 36415; 71045; 80048; 80053; 81001; 82150; 83605; 83690; 83880; 84484; 85025; 85610; 85730; 87040; 93005; G0378; U0002

== ENCOUNTER 2021-02-27 08:30 | Emergency (ER) | payer OTHER ==
[~2021-02-27 08:30] MED LIST changes: +GAS RELIEF80 MG PO; +KLOR-CON M20 T20 MEQ PO; +THERA-D100 MCG PO; +VITAMIN D310 MC4 PO; +[UNRECOGNIZED DRUG - CODE]
[2021-02-27] MEDS ORDERED: MEDROL 4MG DOSEP4 MG PO (10:46)
== END 2021-02-27 11:20 | disposition home or self-care (01) ==
LOC: FER 08:30
DX: M72.2 Plantar fascial fibromatosis (principal); J44.9 Chronic obstructive pulmonary disease, unspecified; F17.210 Nicotine dependence, cigarettes, uncomplicated
CPT/HCPCS: 73650; J2930

== ENCOUNTER 2021-03-24 23:38 | Day surgery (SDCO) | payer OTHER ==
[~2021-03-24] VITALS: Ht 167.6 cm; Wt 88.0 kg
[2021-03-25 00:29] LABS: BASOPHIL 0.4 % (0-2); EOSINOPHIL 1.9 % (0-7); HCT 33.6 % (37.0-47.0); LYMPHOCYTE 40.4 % (15-48); MCH 29.1 pg (25.0-31.0); MCHC 32.7 g/dL (32.0-36.0); MCV 88.9 fL (78.0-100.0); MONOCYTE 7.5 % (0-12); MPV 10.2 fL (6.0-9.5); NEUTROPHIL 49.7 % (41-80); NRBC 0; PLT 251 K/uL (150-400); RBC 3.78 M/uL (4.20-5.40); RDW 16.2 % (11.5-14.0); WBC 7.4 K/uL (4.0-10.5)
[2021-03-25 00:58] LABS: ALBUMIN 3.3 g/dL (3.4-5.0); BILIRUBIN - TOTAL 0.2 mg/dL (0.2-1.0); BUN/CREAT RATIO (CALC) 18.6 RATIO; CREATININE 0.97 mg/dL (0.51-0.95); POTASSIUM 4.3 mmol/L (3.5-5.1); TOTAL PROTEIN 7.3 g/dL (6.4-8.2)
[2021-03-25] MEDS ORDERED: REPATHA SU140 MG/1 M SC (08:31)
--- NOTE | 2021-03-26 10:34 | NUR ---
PT DISCHARGED TO HOME WITH SON. PT AMBULATED TO FRONT DOOR WHERE SON WAS WAITING FOR HER. PT DID STATE SHE WAS MISSING A WHITE BLOUSE FROM THE ER BUT DID NOT WISH TO COMPLAIN. PT SHELTERED WORKSHOP WORKER AND IV REMOVED. PT GIVEN DISCHARGE INSTRUCTIONS AND SIGNED.
== END 2021-03-26 10:35 | disposition home or self-care (01) ==
LOC: FER 23:38 → FTCU 03-25 06:51
PROVIDERS: Emergency Medicine; ADMIT Internal Medicine
DX: R10.13 Epigastric pain (principal); I25.10 Atherosclerotic heart disease of native coronary artery without angina pectoris; I10 Essential (primary) hypertension; E78.5 Hyperlipidemia, unspecified; K21.9 Gastro-esophageal reflux disease without esophagitis; F41.1 Generalized anxiety disorder; F32.9 Major depressive disorder, single episode, unspecified; R07.89 Other chest pain; R77.8 Other specified abnormalities of plasma proteins; J43.9 Emphysema, unspecified; J98.11 Atelectasis; I25.2 Old myocardial infarction; J45.909 Unspecified asthma, uncomplicated; G50.0 Trigeminal neuralgia; K58.9 Irritable bowel syndrome, unspecified; F17.210 Nicotine dependence, cigarettes, uncomplicated; Z79.82 Long term (current) use of aspirin; Z79.02 Long term (current) use of antithrombotics/antiplatelets; Z79.899 Other long term (current) drug therapy; Z88.0 Allergy status to penicillin; Z88.6 Allergy status to analgesic agent; Z88.7 Allergy status to serum and vaccine; Z20.822 Contact with and (suspected) exposure to COVID-19; Z95.5 Presence of coronary angioplasty implant and graft; Z90.49 Acquired absence of other specified parts of digestive tract; Z90.710 Acquired absence of both cervix and uterus
CPT/HCPCS: 36415; 71045; 71275; 80053; 84484; 85025; 85379; 93005; G0378; J1100; Q9967; U0002

== ENCOUNTER 2021-03-29 00:55 | Emergency (ER) | payer OTHER ==
[~2021-03-29 00:55] MED LIST changes: +REPATHA SU140 MG/1 M SC
[2021-03-29 01:47] LABS: BASOPHIL 0.4 % (0-2); EOSINOPHIL 2.2 % (0-7); HCT 35.6 % (37.0-47.0); HGB 11.6 g/dl (12.5-16.0); LYMPHOCYTE 44.8 % (15-48); MCH 28.9 pg (25.0-31.0); MCHC 32.6 g/dL (32.0-36.0); MCV 88.8 fL (78.0-100.0); MONOCYTE 6.8 % (0-12); MPV 10.3 fL (6.0-9.5); NEUTROPHIL 45.6 % (41-80); NRBC 0; PLT 275 K/uL (150-400); RBC 4.01 M/uL (4.20-5.40); RDW 16.1 % (11.5-14.0)
[2021-03-29 01:58] LABS: ALBUMIN 3.3 g/dL (3.4-5.0); BILIRUBIN - TOTAL 0.2 mg/dL (0.2-1.0); BUN/CREAT RATIO (CALC) 18.5 RATIO; CREATININE 0.92 mg/dL (0.51-0.95); GLOBULIN (CALCULATION) 3.9 g/dL; TOTAL PROTEIN 7.2 g/dL (6.4-8.2)
== END 2021-03-29 02:18 | disposition home or self-care (01) ==
LOC: FER 00:55
PROVIDERS: Emergency Medicine
DX: R10.13 Epigastric pain (principal); I10 Essential (primary) hypertension; I25.10 Atherosclerotic heart disease of native coronary artery without angina pectoris; K21.9 Gastro-esophageal reflux disease without esophagitis; Z88.7 Allergy status to serum and vaccine; Z88.2 Allergy status to sulfonamides; Z88.6 Allergy status to analgesic agent; Z88.8 Allergy status to other drugs, medicaments and biological substances; Z79.82 Long term (current) use of aspirin; Z79.02 Long term (current) use of antithrombotics/antiplatelets; Z79.899 Other long term (current) drug therapy
CPT/HCPCS: 36415; 80053; 84484; 85025; 93005; J1885

== ENCOUNTER 2021-04-02 03:08 | Emergency (ER) | payer OTHER ==
[2021-04-02 03:28] LABS: BASOPHIL 0.7 % (0-2); EOSINOPHIL 2.3 % (0-7); HCT 31.3 % (37.0-47.0); LYMPHOCYTE 39.3 % (15-48); MCH 28.6 pg (25.0-31.0); MCHC 31.9 g/dL (32.0-36.0); MCV 89.4 fL (78.0-100.0); MONOCYTE 8.9 % (0-12); MPV 10.3 fL (6.0-9.5); NEUTROPHIL 48.4 % (41-80); NRBC 0; PLT 237 K/uL (150-400); RDW 16.2 % (11.5-14.0); WBC 7.1 K/uL (4.0-10.5)
[2021-04-02 03:52] LABS: BILIRUBIN - TOTAL 0.1 mg/dL (0.2-1.0); BUN/CREAT RATIO (CALC) 11.5 RATIO; CREATININE 0.96 mg/dL (0.51-0.95); GLOBULIN (CALCULATION) 3.7 g/dL; POTASSIUM 4.2 mmol/L (3.5-5.1); TOTAL PROTEIN 6.7 g/dL (6.4-8.2)
[2021-04-02 04:10] LABS: INR 1.1 (0.9-1.2); PROTHROMBIN TIME 13.6 SECONDS (11.8-13.4)
[2021-04-02 04:11] LABS: PTT 26.2 SECONDS (24.4-34.7)
== END 2021-04-02 06:43 | disposition home or self-care (01) ==
LOC: FER 03:08
PROVIDERS: Emergency Medicine
DX: K21.9 Gastro-esophageal reflux disease without esophagitis (principal); R07.89 Other chest pain; I45.10 Unspecified right bundle-branch block; J44.9 Chronic obstructive pulmonary disease, unspecified; I25.10 Atherosclerotic heart disease of native coronary artery without angina pectoris; I10 Essential (primary) hypertension; F17.200 Nicotine dependence, unspecified, uncomplicated; Z95.5 Presence of coronary angioplasty implant and graft
CPT/HCPCS: 36415; 71045; 80053; 84484; 85025; 85610; 85730; 93005; J1170; J2405

== ENCOUNTER 2021-04-05 02:30 | Emergency (ER) | payer OTHER ==
[2021-04-05 04:53] LABS: BASOPHIL 0.5 % (0-2); EOSINOPHIL 2.7 % (0-7); HCT 31.4 % (37.0-47.0); HGB 10.3 g/dl (12.5-16.0); LYMPHOCYTE 39.3 % (15-48); MCH 28.9 pg (25.0-31.0); MCHC 32.8 g/dL (32.0-36.0); MCV 88.2 fL (78.0-100.0); MONOCYTE 6.9 % (0-12); MPV 9.9 fL (6.0-9.5); NEUTROPHIL 50.2 % (41-80); NRBC 0; PLT 234 K/uL (150-400); RBC 3.56 M/uL (4.20-5.40); RDW 15.9 % (11.5-14.0); WBC 7.4 K/uL (4.0-10.5)
[2021-04-05 05:05] LABS: ALBUMIN 3.1 g/dL (3.4-5.0); BILIRUBIN - TOTAL 0.2 mg/dL (0.2-1.0); BUN/CREAT RATIO (CALC) 9.3 RATIO; CREATININE 0.86 mg/dL (0.51-0.95); GLOBULIN (CALCULATION) 4.1 g/dL; POTASSIUM 4.3 mmol/L (3.5-5.1); TOTAL PROTEIN 7.2 g/dL (6.4-8.2)
[2021-04-05] MEDS ORDERED: PERCOCET 5-3251 EACH PO (09:29)
[2021-04-05] MEDS ORDERED: MAGICMW SSW (09:29)
== END 2021-04-05 09:44 | disposition home or self-care (01) ==
LOC: FER 02:30
PROVIDERS: Emergency Medicine Emergency Medical Services
DX: R10.84 Generalized abdominal pain (principal); N28.9 Disorder of kidney and ureter, unspecified; I25.2 Old myocardial infarction; F17.210 Nicotine dependence, cigarettes, uncomplicated; I10 Essential (primary) hypertension; J44.9 Chronic obstructive pulmonary disease, unspecified; K21.9 Gastro-esophageal reflux disease without esophagitis; Z90.710 Acquired absence of both cervix and uterus; Z90.49 Acquired absence of other specified parts of digestive tract; Z79.82 Long term (current) use of aspirin; Z95.5 Presence of coronary angioplasty implant and graft; Z88.5 Allergy status to narcotic agent; Z88.6 Allergy status to analgesic agent; Z88.7 Allergy status to serum and vaccine; Z91.041 Radiographic dye allergy status; Z91.012 Allergy to eggs; Z88.8 Allergy status to other drugs, medicaments and biological substances; Z79.899 Other long term (current) drug therapy; Z79.02 Long term (current) use of antithrombotics/antiplatelets
CPT/HCPCS: 36415; 80053; 82150; 83690; 85025; J1170; J2405; Q9967

== ENCOUNTER 2021-05-07 19:30 | Emergency (ER) | payer OTHER ==
[~2021-05-07 19:30] MED LIST changes: +MAGICMW SSW
[2021-05-07 21:39] LABS: BASOPHIL 0.3 % (0-2); EOSINOPHIL 2.4 % (0-7); HCT 31.4 % (37.0-47.0); HGB 10.2 g/dl (12.5-16.0); LYMPHOCYTE 43.3 % (15-48); MCH 28.7 pg (25.0-31.0); MCHC 32.5 g/dL (32.0-36.0); MCV 88.2 fL (78.0-100.0); MPV 9.8 fL (6.0-9.5); NEUTROPHIL 46.8 % (41-80); NRBC 0; PLT 230 K/uL (150-400); RBC 3.56 M/uL (4.20-5.40); RDW 15.8 % (11.5-14.0); WBC 6.2 K/uL (4.0-10.5)
[2021-05-07 21:57] LABS: ALBUMIN 3.2 g/dL (3.4-5.0); BILIRUBIN - TOTAL 0.2 mg/dL (0.2-1.0); BUN/CREAT RATIO (CALC) 9.8 RATIO; CREATININE 0.92 mg/dL (0.51-0.95); GLOBULIN (CALCULATION) 3.7 g/dL; POTASSIUM 4.6 mmol/L (3.5-5.1); TOTAL PROTEIN 6.9 g/dL (6.4-8.2)
[2021-05-07 22:00] LABS: LACTIC ACID 1.2 mmol/L (0.4-1.9)
[2021-05-07 22:19] LABS: BILIRUBIN NEGATIVE (NEGATIVE); BLOOD NEGATIVE Ery/uL (NEGATIVE); CLARITY CLEAR (CLEAR); COLOR YELLOW (YELLOW); GLUCOSE (U) NORMAL (NORMAL); LEUKOCYTES NEGATIVE Leu/uL (NEGATIVE); NITRITE NEGATIVE (NEGATIVE); PROTEIN NEGATIVE (NEGATIVE); SPECIFIC GRAVITY 1.015 (1.001-1.030); UROBILINOGEN 0.2 mg/dL (0.2-1.0); pH 7.5 (5.0-9.0)
[2021-05-07] MEDS ORDERED: PERCOCET 5-3251 EACH PO ×2 (23:13→23:29)
[2021-05-07] MEDS ORDERED: LEVSIN-SL0.125 M1 PO ×2 (23:13→23:29)
== END 2021-05-07 23:31 | disposition home or self-care (01) ==
LOC: FER 19:30
PROVIDERS: Emergency Medicine Emergency Medical Services
DX: R10.32 Left lower quadrant pain (principal); I10 Essential (primary) hypertension; J44.9 Chronic obstructive pulmonary disease, unspecified; F17.210 Nicotine dependence, cigarettes, uncomplicated; Z88.0 Allergy status to penicillin; Z88.6 Allergy status to analgesic agent; Z88.8 Allergy status to other drugs, medicaments and biological substances
CPT/HCPCS: 36415; 74022; 80053; 81003; 83605; 83690; 84145; 85025; J1170; J2405; J2930

== ENCOUNTER 2021-05-16 00:55 | Emergency (ER) | payer OTHER ==
[~2021-05-16 00:55] MED LIST changes: +LEVSIN-SL0.125 M1 PO
[2021-05-16 02:18] LABS: BASOPHIL 0.6 % (0-2); EOSINOPHIL 2.1 % (0-7); HCT 30.9 % (37.0-47.0); HGB 9.7 g/dl (12.5-16.0); LYMPHOCYTE 45.1 % (15-48); MCH 27.5 pg (25.0-31.0); MCHC 31.4 g/dL (32.0-36.0); MCV 87.5 fL (78.0-100.0); MONOCYTE 9.1 % (0-12); MPV 10.1 fL (6.0-9.5); NRBC 0; PLT 246 K/uL (150-400); RBC 3.53 M/uL (4.20-5.40); RDW 15.7 % (11.5-14.0)
[2021-05-16 02:21] LABS: BILIRUBIN - TOTAL 0.2 mg/dL (0.2-1.0); BUN/CREAT RATIO (CALC) 8.7 RATIO; CREATININE 1.04 mg/dL (0.51-0.95); GLOBULIN (CALCULATION) 3.6 g/dL; POTASSIUM 4.4 mmol/L (3.5-5.1); TOTAL PROTEIN 6.6 g/dL (6.4-8.2)
[2021-05-16] MEDS ORDERED: REGLAN10 MG PO (05:38)
== END 2021-05-16 06:40 | disposition home or self-care (01) ==
LOC: FER 00:55
PROVIDERS: Emergency Medicine Emergency Medical Services
DX: R10.13 Epigastric pain (principal); I10 Essential (primary) hypertension; J44.9 Chronic obstructive pulmonary disease, unspecified; I25.2 Old myocardial infarction; F17.210 Nicotine dependence, cigarettes, uncomplicated; Z88.0 Allergy status to penicillin; Z88.1 Allergy status to other antibiotic agents; Z88.6 Allergy status to analgesic agent; Z88.8 Allergy status to other drugs, medicaments and biological substances
CPT/HCPCS: 36415; 74022; 80053; 83605; 83690; 84145; 84484; 85025; 93005; C9113; J1170; J2060; J2405; J7030

== ENCOUNTER 2021-05-19 00:46 | Emergency (ER) | payer OTHER ==
[~2021-05-19 00:46] MED LIST changes: +REGLAN10 MG PO
[2021-05-19 01:08] LABS: BASOPHIL 0.6 % (0-2); HCT 32.3 % (37.0-47.0); HGB 10.4 g/dl (12.5-16.0); LYMPHOCYTE 43.2 % (15-48); MCHC 32.2 g/dL (32.0-36.0); MCV 87.1 fL (78.0-100.0); MONOCYTE 7.1 % (0-12); MPV 9.9 fL (6.0-9.5); NEUTROPHIL 46.9 % (41-80); NRBC 0; PLT 263 K/uL (150-400); RBC 3.71 M/uL (4.20-5.40); RDW 15.9 % (11.5-14.0); WBC 8.5 K/uL (4.0-10.5)
[2021-05-19 01:23] LABS: ALBUMIN 3.1 g/dL (3.4-5.0); BILIRUBIN - TOTAL 0.2 mg/dL (0.2-1.0); BUN/CREAT RATIO (CALC) 9.9 RATIO; CREATININE 1.11 mg/dL (0.51-0.95); GLOBULIN (CALCULATION) 3.8 g/dL; POTASSIUM 4.4 mmol/L (3.5-5.1); TOTAL PROTEIN 6.9 g/dL (6.4-8.2)
== END 2021-05-19 03:57 | disposition home or self-care (01) ==
LOC: FER 00:46
PROVIDERS: Emergency Medicine
DX: K21.9 Gastro-esophageal reflux disease without esophagitis (principal); R07.89 Other chest pain; I50.9 Heart failure, unspecified; J44.9 Chronic obstructive pulmonary disease, unspecified; F17.210 Nicotine dependence, cigarettes, uncomplicated; Z88.6 Allergy status to analgesic agent; Z88.8 Allergy status to other drugs, medicaments and biological substances; Z88.2 Allergy status to sulfonamides; Z88.1 Allergy status to other antibiotic agents
CPT/HCPCS: 36415; 71045; 80053; 84484; 85025; 93005; J1885

== ENCOUNTER 2021-05-21 02:35 | Emergency (ER) | payer OTHER ==
[2021-05-21 03:16] LABS: BASOPHIL 0.6 % (0-2); EOSINOPHIL 2.6 % (0-7); HCT 32.6 % (37.0-47.0); HGB 10.6 g/dl (12.5-16.0); LYMPHOCYTE 40.8 % (15-48); MCH 28.3 pg (25.0-31.0); MCHC 32.5 g/dL (32.0-36.0); MCV 87.2 fL (78.0-100.0); MPV 10.2 fL (6.0-9.5); NEUTROPHIL 48.8 % (41-80); NRBC 0; PLT 295 K/uL (150-400); RBC 3.74 M/uL (4.20-5.40); RDW 15.9 % (11.5-14.0); WBC 8.9 K/uL (4.0-10.5)
[2021-05-21 03:36] LABS: INR 1.04 (0.9-1.2); PTT 27.4 SECONDS (24.4-34.7)
[2021-05-21 03:37] LABS: D-DIMER 0.71 ug/mLFEU (0.00-0.41)
[2021-05-21 03:44] LABS: ALBUMIN 3.2 g/dL (3.4-5.0); BILIRUBIN - TOTAL 0.2 mg/dL (0.2-1.0); BUN/CREAT RATIO (CALC) 12.5 RATIO; CREATININE 0.96 mg/dL (0.51-0.95); GLOBULIN (CALCULATION) 4.2 g/dL; POTASSIUM 4.3 mmol/L (3.5-5.1); TOTAL PROTEIN 7.4 g/dL (6.4-8.2)
== END 2021-05-21 11:10 | disposition other institution (70) ==
LOC: FER 02:35
PROVIDERS: Emergency Medicine Emergency Medical Services
DX: R07.89 Other chest pain (principal); R10.12 Left upper quadrant pain; I25.2 Old myocardial infarction; F17.200 Nicotine dependence, unspecified, uncomplicated; Z79.899 Other long term (current) drug therapy
CPT/HCPCS: 36415; 71045; 71275; 80053; 82150; 83605; 83690; 83880; 84145; 84484; 85025; 85379; 85610; 85730; 93005; C9113; J1170; J2405; Q9967

== ENCOUNTER 2021-06-04 23:15 | Emergency (ER) | payer OTHER ==
[2021-06-05 00:21] LABS: HCT 31.3 % (37.0-47.0); MCH 27.7 pg (25.0-31.0); MCHC 31.9 g/dL (32.0-36.0); MCV 86.7 fL (78.0-100.0); MPV 10.3 fL (6.0-9.5); RBC 3.61 M/uL (4.20-5.40); RDW 15.8 % (11.5-14.0); WBC 7.8 K/uL (4.0-10.5)
[2021-06-05 00:27] LABS: BUN/CREAT RATIO (CALC) 11.2 RATIO; CREATININE 1.07 mg/dL (0.51-0.95); POTASSIUM 4.2 mmol/L (3.5-5.1)
== END 2021-06-05 01:27 | disposition home or self-care (01) ==
LOC: FER 23:15
PROVIDERS: Emergency Medicine
DX: R10.13 Epigastric pain (principal); R51.9 Headache, unspecified; I10 Essential (primary) hypertension; I25.10 Atherosclerotic heart disease of native coronary artery without angina pectoris; F17.200 Nicotine dependence, unspecified, uncomplicated; Z88.7 Allergy status to serum and vaccine; Z88.0 Allergy status to penicillin; Z88.2 Allergy status to sulfonamides; Z88.6 Allergy status to analgesic agent; Z91.041 Radiographic dye allergy status; Z79.02 Long term (current) use of antithrombotics/antiplatelets; Z79.899 Other long term (current) drug therapy
CPT/HCPCS: 36415; 80048; 84484; 93005

== ENCOUNTER 2021-06-13 16:54 | Emergency (ER) | payer OTHER ==
[2021-06-13 18:18] LABS: BASOPHIL 0.7 % (0-2); EOSINOPHIL 2.2 % (0-7); HCT 33.8 % (37.0-47.0); HGB 10.6 g/dl (12.5-16.0); MCH 27.4 pg (25.0-31.0); MCHC 31.4 g/dL (32.0-36.0); MCV 87.3 fL (78.0-100.0); MONOCYTE 8.2 % (0-12); MPV 9.8 fL (6.0-9.5); NEUTROPHIL 46.6 % (41-80); NRBC 0; PLT 247 K/uL (150-400); RBC 3.87 M/uL (4.20-5.40); RDW 15.9 % (11.5-14.0); WBC 6.9 K/uL (4.0-10.5)
[2021-06-13 18:33] LABS: BUN/CREAT RATIO (CALC) 15.5 RATIO; CREATININE 1.16 mg/dL (0.51-0.95); POTASSIUM 3.9 mmol/L (3.5-5.1)
== END 2021-06-13 19:50 | disposition home or self-care (01) ==
LOC: FER 16:54
PROVIDERS: Nurse Practitioner Family
DX: K21.9 Gastro-esophageal reflux disease without esophagitis (principal); Z88.0 Allergy status to penicillin; Z88.7 Allergy status to serum and vaccine
CPT/HCPCS: 36415; 80048; 84484; 85025; 93005

== ENCOUNTER 2021-06-16 22:43 | Emergency (ER) | payer OTHER ==
[2021-06-16 23:22] LABS: BASOPHIL 0.6 % (0-2); EOSINOPHIL 2.4 % (0-7); HCT 31.8 % (37.0-47.0); HGB 9.9 g/dl (12.5-16.0); MCH 26.8 pg (25.0-31.0); MCHC 31.1 g/dL (32.0-36.0); MCV 86.2 fL (78.0-100.0); MONOCYTE 6.6 % (0-12); MPV 10.1 fL (6.0-9.5); NEUTROPHIL 46.3 % (41-80); NRBC 0; PLT 249 K/uL (150-400); RBC 3.69 M/uL (4.20-5.40); RDW 15.8 % (11.5-14.0); WBC 7.2 K/uL (4.0-10.5)
[2021-06-16 23:40] LABS: ALBUMIN 3.4 g/dL (3.4-5.0); BILIRUBIN - TOTAL 0.2 mg/dL (0.2-1.0); BUN/CREAT RATIO (CALC) 14.6 RATIO; CREATININE 1.03 mg/dL (0.51-0.95); GLOBULIN (CALCULATION) 4.1 g/dL; TOTAL PROTEIN 7.5 g/dL (6.4-8.2)
[2021-06-17 00:22] LABS: FT4 (FREE T4) 0.9 ng/dL (0.76-1.46)
[2021-06-17] MEDS ORDERED: MAGICMW SSW (01:17)
== END 2021-06-17 01:26 | disposition home or self-care (01) ==
LOC: FER 22:43
PROVIDERS: Emergency Medicine Emergency Medical Services
DX: I10 Essential (primary) hypertension (principal); R10.13 Epigastric pain; I25.2 Old myocardial infarction; Z88.1 Allergy status to other antibiotic agents; Z88.6 Allergy status to analgesic agent; Z88.0 Allergy status to penicillin; Z88.8 Allergy status to other drugs, medicaments and biological substances
CPT/HCPCS: 36415; 74022; 80053; 82150; 83690; 84439; 84443; 84484; 85025; 86140; 93005; J1170; J1885; J2060; J2405; J7030

== ENCOUNTER 2021-07-13 10:41 | Day surgery (SDCO) | payer OTHER ==
[~2021-07-13] VITALS: Ht 167.6 cm; Wt 87.6 kg
[2021-07-13 11:49] LABS: BASOPHIL 0.6 % (0-2); EOSINOPHIL 3.7 % (0-7); HGB 10.2 g/dl (12.5-16.0); LYMPHOCYTE 40.1 % (15-48); MCH 26.6 pg (25.0-31.0); MCHC 31.9 g/dL (32.0-36.0); MCV 83.3 fL (78.0-100.0); MONOCYTE 8.3 % (0-12); MPV 9.9 fL (6.0-9.5); NRBC 0; PLT 266 K/uL (150-400); RBC 3.84 M/uL (4.20-5.40); RDW 15.9 % (11.5-14.0); WBC 6.8 K/uL (4.0-10.5)
[2021-07-13 11:59] LABS: INR 1.05 (0.9-1.2); PROTHROMBIN TIME 13.1 SECONDS (11.8-13.4); PTT 24.9 SECONDS (24.4-34.7)
[2021-07-13 12:18] LABS: ALBUMIN 3.5 g/dL (3.4-5.0); BILIRUBIN - TOTAL 0.2 mg/dL (0.2-1.0); CREATININE 1.12 mg/dL (0.51-0.95); GLOBULIN (CALCULATION) 4.3 g/dL; POTASSIUM 3.8 mmol/L (3.5-5.1); TOTAL PROTEIN 7.8 g/dL (6.4-8.2)
[2021-07-13] MEDS ORDERED: LOSARTAN-HCTZ1 EAC2 PO (22:03)
[2021-07-13] MEDS ORDERED: ATENOLOL25 M1 PO (22:03)
[2021-07-13] MEDS ORDERED: MYLANTA MAXIMU355 ML PO (22:10)
[2021-07-13] MEDS ORDERED: AZELASTINE205.5 MCG/ (22:30)
[2021-07-14 06:34] LABS: BASOPHIL 0.7 % (0-2); EOSINOPHIL 3.8 % (0-7); HCT 30.3 % (37.0-47.0); HGB 9.7 g/dl (12.5-16.0); MCH 26.7 pg (25.0-31.0); MCV 83.5 fL (78.0-100.0); MONOCYTE 6.6 % (0-12); NEUTROPHIL 33.7 % (41-80); NRBC 0; PLT 226 K/uL (150-400); RBC 3.63 M/uL (4.20-5.40); RDW 15.7 % (11.5-14.0)
[2021-07-14 06:38] LABS: WBC 5.6 K/uL (4.0-10.5)
[2021-07-14 07:15] LABS: BUN/CREAT RATIO (CALC) 19.4 RATIO; CREATININE 0.98 mg/dL (0.51-0.95); FOLIC ACID (SERUM) 3.8 ng/mL (8.6-58.9)
[2021-07-15 06:05] LABS: BASOPHIL 0.5 % (0-2); EOSINOPHIL 3.6 % (0-7); HCT 30.9 % (37.0-47.0); LYMPHOCYTE 43.7 % (15-48); MCH 27.2 pg (25.0-31.0); MCHC 32.4 g/dL (32.0-36.0); MONOCYTE 5.5 % (0-12); MPV 10.1 fL (6.0-9.5); NEUTROPHIL 46.5 % (41-80); NRBC 0; PLT 230 K/uL (150-400); RBC 3.68 M/uL (4.20-5.40); RDW 15.9 % (11.5-14.0); WBC 6.3 K/uL (4.0-10.5)
[2021-07-15 06:31] LABS: BUN/CREAT RATIO (CALC) 19.3 RATIO; CREATININE 1.09 mg/dL (0.51-0.95); POTASSIUM 3.8 mmol/L (3.5-5.1)
--- NOTE | 2021-07-15 12:05 | NUR ---
07/15/21 Ms. Mcmullen lives at home with her adult son. She is independent in the home and community. - No discharge planning needs are anticipated
[2021-07-15] MEDS ORDERED: FOLIC ACID1 MG PO (12:46)
[2021-07-15] MEDS ORDERED: RANOLAZINE ER500 MG PO (12:46)
[2021-07-15] MEDS ORDERED: PLAVIX75 MG PO (12:46)
--- NOTE | 2021-07-15 14:00 | NUR ---
PATIENT DISCHARGED [facility], PICKED UP BY DAUGHTER. VERBALIZED UNDERSTANDING OF DISCHARGE INSTRUCTIONS. IV AND MONITOR DCD.
== END 2021-07-15 13:50 | disposition home or self-care (01) ==
LOC: FER 10:41 → FTCU 13:19
PROVIDERS: Emergency Medicine; ADMIT Internal Medicine
DX: R07.89 Other chest pain (principal); I25.10 Atherosclerotic heart disease of native coronary artery without angina pectoris; K21.9 Gastro-esophageal reflux disease without esophagitis; K58.9 Irritable bowel syndrome, unspecified; J44.9 Chronic obstructive pulmonary disease, unspecified; I10 Essential (primary) hypertension; E78.5 Hyperlipidemia, unspecified; F41.8 Other specified anxiety disorders; D50.9 Iron deficiency anemia, unspecified; I25.2 Old myocardial infarction; J45.909 Unspecified asthma, uncomplicated; F17.210 Nicotine dependence, cigarettes, uncomplicated; Z95.5 Presence of coronary angioplasty implant and graft; Z88.7 Allergy status to serum and vaccine; Z91.041 Radiographic dye allergy status; Z88.5 Allergy status to narcotic agent; Z88.0 Allergy status to penicillin; Z91.013 Allergy to seafood; Z79.82 Long term (current) use of aspirin; Z90.711 Acquired absence of uterus with remaining cervical stump; Z20.822 Contact with and (suspected) exposure to COVID-19; Z79.02 Long term (current) use of antithrombotics/antiplatelets
CPT/HCPCS: 36415; 71045; 71046; 80048; 80053; 82607; 82746; 83540; 83690; 84443; 84484; 85025; 85610; 85730; G0378; J1650; J2405; J2916; U0002

== ENCOUNTER 2021-08-08 01:32 | Emergency (ER) | payer OTHER ==
[~2021-08-08 01:32] MED LIST changes: +ATENOLOL25 M1 PO; +AZELASTINE205.5 MCG/; +FOLIC ACID1 MG PO; +LOSARTAN-HCTZ1 EAC2 PO; +MYLANTA MAXIMU355 ML PO; +RANOLAZINE ER500 MG PO
[2021-08-08 02:25] LABS: BASOPHIL 0.7 % (0-2); EOSINOPHIL 6.4 % (0-7); HCT 30.6 % (37.0-47.0); HGB 9.7 g/dl (12.5-16.0); LYMPHOCYTE 50.5 % (15-48); MCH 27.2 pg (25.0-31.0); MCHC 31.7 g/dL (32.0-36.0); MCV 85.7 fL (78.0-100.0); MONOCYTE 8.3 % (0-12); MPV 10.4 fL (6.0-9.5); NEUTROPHIL 33.9 % (41-80); NRBC 0; PLT 243 K/uL (150-400); RBC 3.57 M/uL (4.20-5.40); RDW 17.8 % (11.5-14.0); WBC 5.9 K/uL (4.0-10.5)
[2021-08-08 02:46] LABS: ALBUMIN 3.4 g/dL (3.4-5.0); BILIRUBIN - TOTAL 0.2 mg/dL (0.2-1.0); BUN/CREAT RATIO (CALC) 14.4 RATIO; CREATININE 1.11 mg/dL (0.51-0.95); GLOBULIN (CALCULATION) 3.7 g/dL; POTASSIUM 3.8 mmol/L (3.5-5.1); TOTAL PROTEIN 7.1 g/dL (6.4-8.2)
== END 2021-08-08 06:43 | disposition home or self-care (01) ==
LOC: FER 01:32
PROVIDERS: Emergency Medicine Emergency Medical Services
DX: R07.89 Other chest pain (principal); R10.13 Epigastric pain; I10 Essential (primary) hypertension; F17.290 Nicotine dependence, other tobacco product, uncomplicated
CPT/HCPCS: 36415; 71045; 74018; 80053; 83690; 83880; 84484; 85025; 93005; C9113; J1170; J1940; J2405; J2930

== ENCOUNTER 2021-09-20 16:26 | Emergency (ER) | payer MEDICARE ==
[2021-09-20 17:03] LABS: BASOPHIL 0.4 % (0-2); HCT 35.7 % (37.0-47.0); HGB 11.3 g/dl (12.5-16.0); LYMPHOCYTE 39.2 % (15-48); MCH 27.1 pg (25.0-31.0); MCHC 31.7 g/dL (32.0-36.0); MCV 85.6 fL (78.0-100.0); MONOCYTE 6.8 % (0-12); MPV 10.6 fL (6.0-9.5); NEUTROPHIL 50.3 % (41-80); NRBC 0; PLT 205 K/uL (150-400); RBC 4.17 M/uL (4.20-5.40); RDW 18.6 % (11.5-14.0); WBC 7.1 K/uL (4.0-10.5)
[2021-09-20 17:11] LABS: INR 1.05 (0.9-1.2); PROTHROMBIN TIME 13.1 SECONDS (11.8-13.4); PTT 20.2 SECONDS (24.4-34.7)
[2021-09-20 17:22] LABS: ALBUMIN 3.4 g/dL (3.4-5.0); BILIRUBIN - TOTAL 0.3 mg/dL (0.2-1.0); BUN/CREAT RATIO (CALC) 12.3 RATIO; CREATININE 1.3 mg/dL (0.51-0.95); GLOBULIN (CALCULATION) 4.4 g/dL; TOTAL PROTEIN 7.8 g/dL (6.4-8.2)
[2021-09-20 17:27] LABS: POTASSIUM 4.4 mmol/L (3.5-5.1)
[2021-09-20] MEDS ORDERED: PERCOCET 5-3251 EACH PO (19:22)
[2021-09-20] MEDS ORDERED: ONDANSETRON ODT4 MG PO (19:22)
== END 2021-09-20 19:51 | disposition home or self-care (01) ==
LOC: FER 16:26
PROVIDERS: Internal Medicine
DX: U07.1 COVID-19 (principal); K21.9 Gastro-esophageal reflux disease without esophagitis; R07.89 Other chest pain; I25.10 Atherosclerotic heart disease of native coronary artery without angina pectoris; I25.2 Old myocardial infarction; I10 Essential (primary) hypertension; E78.5 Hyperlipidemia, unspecified; F17.210 Nicotine dependence, cigarettes, uncomplicated; Z20.822 Contact with and (suspected) exposure to COVID-19; Z95.5 Presence of coronary angioplasty implant and graft; Z88.0 Allergy status to penicillin; Z88.2 Allergy status to sulfonamides; Z88.5 Allergy status to narcotic agent; Z79.02 Long term (current) use of antithrombotics/antiplatelets; Z79.899 Other long term (current) drug therapy
CPT/HCPCS: 36415; 71045; 80053; 83690; 83880; 84484; 85025; 85610; 85730; 93005; J1100; J1170; J2405; J7040; U0002

== ENCOUNTER 2021-10-03 23:32 | Emergency (ER) | payer MEDICARE ==
[~2021-10-03 23:32] MED LIST changes: +ONDANSETRON ODT4 MG PO
[2021-10-04 00:33] LABS: BASOPHIL 0.2 % (0-2); EOSINOPHIL 1.9 % (0-7); HCT 34.4 % (37.0-47.0); HGB 11.2 g/dl (12.5-16.0); LYMPHOCYTE 38.9 % (15-48); MCH 28.1 pg (25.0-31.0); MCHC 32.6 g/dL (32.0-36.0); MCV 86.2 fL (78.0-100.0); MONOCYTE 7.1 % (0-12); MPV 9.4 fL (6.0-9.5); NEUTROPHIL 51.8 % (41-80); NRBC 0; PLT 235 K/uL (150-400); RBC 3.99 M/uL (4.20-5.40); RDW 19.3 % (11.5-14.0); WBC 8.3 K/uL (4.0-10.5)
[2021-10-04 00:59] LABS: ALBUMIN 3.4 g/dL (3.4-5.0); BILIRUBIN - TOTAL 0.2 mg/dL (0.2-1.0); BUN/CREAT RATIO (CALC) 16.2 RATIO; CREATININE 1.11 mg/dL (0.51-0.95); GLOBULIN (CALCULATION) 4.4 g/dL; POTASSIUM 3.6 mmol/L (3.5-5.1); TOTAL PROTEIN 7.8 g/dL (6.4-8.2)
[2021-10-04 01:00] LABS: LACTIC ACID 0.6 mmol/L (0.4-1.9)
[2021-10-04] MEDS ORDERED: PERCOCET 5-3251 EACH PO (03:32)
== END 2021-10-04 03:55 | disposition home or self-care (01) ==
LOC: FER 23:32
PROVIDERS: Emergency Medicine Emergency Medical Services
DX: R10.11 Right upper quadrant pain (principal); I10 Essential (primary) hypertension; J45.909 Unspecified asthma, uncomplicated; F17.210 Nicotine dependence, cigarettes, uncomplicated; K21.9 Gastro-esophageal reflux disease without esophagitis; Z88.0 Allergy status to penicillin; Z88.2 Allergy status to sulfonamides; Z88.5 Allergy status to narcotic agent; Z88.7 Allergy status to serum and vaccine; Z88.8 Allergy status to other drugs, medicaments and biological substances; Z79.82 Long term (current) use of aspirin; Z79.899 Other long term (current) drug therapy
CPT/HCPCS: 36415; 71045; 74018; 80053; 83605; 83690; 84145; 85025; C9113; J1170; J2060; J2405

== ENCOUNTER 2021-10-08 01:59 | Inpatient (IN) | payer MEDICARE ==
[~2021-10-08] VITALS: Ht 167.6 cm; Wt 84.8 kg
[2021-10-08 02:28] LABS: HCT 34.5 % (37.0-47.0); HGB 11.1 g/dl (12.5-16.0); MCH 27.7 pg (25.0-31.0); MCHC 32.2 g/dL (32.0-36.0); MPV 9.4 fL (6.0-9.5); RBC 4.01 M/uL (4.20-5.40); WBC 7.7 K/uL (4.0-10.5)
[2021-10-08 02:50] LABS: BUN/CREAT RATIO (CALC) 13.1 RATIO; CREATININE 0.99 mg/dL (0.51-0.95)
[2021-10-08] MEDS ORDERED: PLAVIX75 MG PO ×2 (19:19→19:21)
[2021-10-09] MEDS ORDERED: COZAAR50 MG PO (09:16)
[2021-10-09] MEDS ORDERED: HCTZ25 MG PO (09:16)
--- NOTE | 2021-10-09 12:28 | NUR ---
PER DR. SHANE PT IS SUPPOSE TO BE OBS AND HE WILL CHG FROM INPT TO OBS. SHE MAY D/C HOME 10/09/21.
[2021-10-09] MEDS ORDERED: ONDANSETRON ODT4 MG PO (13:18)
== END 2021-10-09 13:15 | disposition home or self-care (01) | DRG 302 ==
LOC: FER 01:59 → FICU 10:52 → FTCU 13:29
PROVIDERS: Emergency Medicine; ADMIT Internal Medicine
PROC: 8E0ZXY6 Isolation (ICD-10-PCS; principal; 2021-10-08)
DX: I25.118 Atherosclerotic heart disease of native coronary artery with other forms of angina pectoris (principal); U07.1 COVID-19; I10 Essential (primary) hypertension; E78.5 Hyperlipidemia, unspecified; F41.9 Anxiety disorder, unspecified; F32.A Depression, unspecified; K21.9 Gastro-esophageal reflux disease without esophagitis; K31.84 Gastroparesis; F17.200 Nicotine dependence, unspecified, uncomplicated; J44.9 Chronic obstructive pulmonary disease, unspecified; F43.21 Adjustment disorder with depressed mood; M54.9 Dorsalgia, unspecified; G89.29 Other chronic pain; Z63.4 Disappearance and death of family member; Z95.5 Presence of coronary angioplasty implant and graft; Z90.49 Acquired absence of other specified parts of digestive tract; Z90.710 Acquired absence of both cervix and uterus; Z88.0 Allergy status to penicillin; Z88.5 Allergy status to narcotic agent; Z88.2 Allergy status to sulfonamides; Z88.7 Allergy status to serum and vaccine; Z91.041 Radiographic dye allergy status; Z79.02 Long term (current) use of antithrombotics/antiplatelets; Z79.899 Other long term (current) drug therapy; Z90.711 Acquired absence of uterus with remaining cervical stump; Z98.890 Other specified postprocedural states; I25.2 Old myocardial infarction; Z79.82 Long term (current) use of aspirin
CPT/HCPCS: 36415; 71045; 71275; 80048; 84484; 93005; J1170; J2060; J2405; Q0162; Q9967; U0002

== ENCOUNTER 2021-10-11 00:25 | Emergency (ER) | payer MEDICARE ==
[~2021-10-11 00:25] MED LIST changes: +COZAAR50 MG PO; +HCTZ25 MG PO
[2021-10-11 00:58] LABS: HCT 36.5 % (37.0-47.0); HGB 11.9 g/dl (12.5-16.0); MCH 28.4 pg (25.0-31.0); MCHC 32.6 g/dL (32.0-36.0); MCV 87.1 fL (78.0-100.0); MPV 10.1 fL (6.0-9.5); RBC 4.19 M/uL (4.20-5.40); RDW 19.2 % (11.5-14.0); WBC 9.1 K/uL (4.0-10.5)
[2021-10-11 01:27] LABS: ALBUMIN 3.6 g/dL (3.4-5.0); BILIRUBIN - TOTAL 0.1 mg/dL (0.2-1.0); BUN/CREAT RATIO (CALC) 8.8 RATIO; CREATININE 1.13 mg/dL (0.51-0.95); GLOBULIN (CALCULATION) 4.6 g/dL; TOTAL PROTEIN 8.2 g/dL (6.4-8.2)
== END 2021-10-11 08:53 | disposition other institution (70) ==
LOC: FER 00:25
PROVIDERS: Emergency Medicine
DX: R10.13 Epigastric pain (principal); R77.8 Other specified abnormalities of plasma proteins; I25.10 Atherosclerotic heart disease of native coronary artery without angina pectoris; I10 Essential (primary) hypertension; E78.5 Hyperlipidemia, unspecified; F17.200 Nicotine dependence, unspecified, uncomplicated; Z95.5 Presence of coronary angioplasty implant and graft; Z88.0 Allergy status to penicillin; Z88.1 Allergy status to other antibiotic agents; Z88.5 Allergy status to narcotic agent; Z88.7 Allergy status to serum and vaccine; Z79.899 Other long term (current) drug therapy
CPT/HCPCS: 36415; 70450; 71045; 80053; 84484; 93005

== ENCOUNTER 2021-10-17 02:29 | Emergency (ER) | payer MEDICARE ==
[2021-10-17 03:28] LABS: BASOPHIL 0.5 % (0-2); EOSINOPHIL 1.8 % (0-7); HCT 33.7 % (37.0-47.0); HGB 10.9 g/dl (12.5-16.0); MCH 27.9 pg (25.0-31.0); MCHC 32.3 g/dL (32.0-36.0); MCV 86.2 fL (78.0-100.0); MONOCYTE 6.9 % (0-12); MPV 9.5 fL (6.0-9.5); NEUTROPHIL 49.6 % (41-80); NRBC 0; PLT 272 K/uL (150-400); RBC 3.91 M/uL (4.20-5.40); RDW 19.2 % (11.5-14.0); WBC 8.3 K/uL (4.0-10.5)
[2021-10-17 03:59] LABS: ALBUMIN 3.2 g/dL (3.4-5.0); BILIRUBIN - TOTAL 0.2 mg/dL (0.2-1.0); BUN/CREAT RATIO (CALC) 11.9 RATIO; CREATININE 1.01 mg/dL (0.51-0.95); POTASSIUM 4.1 mmol/L (3.5-5.1); TOTAL PROTEIN 7.2 g/dL (6.4-8.2)
[2021-10-17] MEDS ORDERED: CARAFATE1 GM PO (04:47)
[2021-10-17] MEDS ORDERED: PERCOCET 5-3251 EACH PO (04:47)
== END 2021-10-17 05:58 | disposition home or self-care (01) ==
LOC: FER 02:29
PROVIDERS: Internal Medicine
DX: K21.9 Gastro-esophageal reflux disease without esophagitis (principal); I25.10 Atherosclerotic heart disease of native coronary artery without angina pectoris; I10 Essential (primary) hypertension; J44.9 Chronic obstructive pulmonary disease, unspecified; F17.210 Nicotine dependence, cigarettes, uncomplicated; Z88.0 Allergy status to penicillin; Z88.1 Allergy status to other antibiotic agents; Z88.5 Allergy status to narcotic agent; Z88.7 Allergy status to serum and vaccine; Z91.041 Radiographic dye allergy status
CPT/HCPCS: 36415; 80053; 83690; 84145; 84484; 85025; 93005; J1170

== ENCOUNTER → 2021-10-20 | Day surgery (SDC) | payer MEDICARE ==
[~2021-10-20] VITALS: Ht 167.6 cm; Wt 81.6 kg
[2021-10-20 05:56] LABS: BASOPHIL 0.5 % (0-2); EOSINOPHIL 1.9 % (0-7); HCT 33.5 % (37.0-47.0); HGB 10.9 g/dl (12.5-16.0); LYMPHOCYTE 45.1 % (15-48); MCH 27.9 pg (25.0-31.0); MCHC 32.5 g/dL (32.0-36.0); MCV 85.7 fL (78.0-100.0); MONOCYTE 5.9 % (0-12); MPV 9.7 fL (6.0-9.5); NEUTROPHIL 46.3 % (41-80); NRBC 0; PLT 270 K/uL (150-400); RBC 3.91 M/uL (4.20-5.40); RDW 18.7 % (11.5-14.0); WBC 7.5 K/uL (4.0-10.5)
[2021-10-20 06:19] LABS: ALBUMIN 3.2 g/dL (3.4-5.0); BILIRUBIN - TOTAL 0.2 mg/dL (0.2-1.0); BUN/CREAT RATIO (CALC) 12.4 RATIO; CREATININE 0.97 mg/dL (0.51-0.95); POTASSIUM 4.2 mmol/L (3.5-5.1); TOTAL PROTEIN 7.2 g/dL (6.4-8.2)
[2021-10-20 09:06] LABS: LACTIC ACID 1.7 mmol/L (0.4-1.9)
== END | disposition home or self-care (01) ==
LOC: FER 05:04 → FOR 09:37
PROVIDERS: Emergency Medicine; Internal Medicine
DX: R10.13 Epigastric pain (principal); R07.9 Chest pain, unspecified; K31.84 Gastroparesis; D64.9 Anemia, unspecified; I25.10 Atherosclerotic heart disease of native coronary artery without angina pectoris; I10 Essential (primary) hypertension; J44.9 Chronic obstructive pulmonary disease, unspecified; G89.29 Other chronic pain; I25.2 Old myocardial infarction; K21.9 Gastro-esophageal reflux disease without esophagitis; E78.5 Hyperlipidemia, unspecified; F17.210 Nicotine dependence, cigarettes, uncomplicated; F32.A Depression, unspecified; Z88.5 Allergy status to narcotic agent; Z88.0 Allergy status to penicillin; Z88.2 Allergy status to sulfonamides; Z91.012 Allergy to eggs; Z88.8 Allergy status to other drugs, medicaments and biological substances; Z88.7 Allergy status to serum and vaccine; Z79.02 Long term (current) use of antithrombotics/antiplatelets; Z79.899 Other long term (current) drug therapy; Z20.822 Contact with and (suspected) exposure to COVID-19
CPT/HCPCS: 36415; 71250; 80053; 83605; 84145; 84484; 85025; 87040; 93005; J7120; U0002

== ENCOUNTER 2021-10-29 02:13 | Emergency (ER) | payer MEDICARE ==
[2021-10-29 03:27] LABS: BASOPHIL 0.3 % (0-2); HCT 34.1 % (37.0-47.0); HGB 11.1 g/dl (12.5-16.0); LYMPHOCYTE 39.4 % (15-48); MCH 28.8 pg (25.0-31.0); MCHC 32.6 g/dL (32.0-36.0); MCV 88.3 fL (78.0-100.0); MONOCYTE 8.8 % (0-12); MPV 9.6 fL (6.0-9.5); NEUTROPHIL 49.2 % (41-80); NRBC 0; PLT 233 K/uL (150-400); RBC 3.86 M/uL (4.20-5.40); RDW 18.7 % (11.5-14.0); WBC 6.9 K/uL (4.0-10.5)
[2021-10-29 04:18] LABS: ALBUMIN 3.2 g/dL (3.4-5.0); BILIRUBIN - TOTAL 0.1 mg/dL (0.2-1.0); BUN/CREAT RATIO (CALC) 11.6 RATIO; CREATININE 0.95 mg/dL (0.51-0.95); GLOBULIN (CALCULATION) 3.9 g/dL; POTASSIUM 3.8 mmol/L (3.5-5.1); TOTAL PROTEIN 7.1 g/dL (6.4-8.2)
== END 2021-10-29 05:26 | disposition home or self-care (01) ==
LOC: FER 02:13
PROVIDERS: Internal Medicine
DX: R10.13 Epigastric pain (principal); G89.29 Other chronic pain; R77.8 Other specified abnormalities of plasma proteins; I10 Essential (primary) hypertension; F17.210 Nicotine dependence, cigarettes, uncomplicated; J44.9 Chronic obstructive pulmonary disease, unspecified; Z88.5 Allergy status to narcotic agent; Z88.8 Allergy status to other drugs, medicaments and biological substances; Z91.041 Radiographic dye allergy status
CPT/HCPCS: 36415; 80053; 83690; 84484; 85025; 93005

== ENCOUNTER 2021-11-02 02:28 | Emergency (ER) | payer MEDICARE ==
[2021-11-02 03:57] LABS: BASOPHIL 0.7 % (0-2); EOSINOPHIL 2.2 % (0-7); HCT 34.4 % (37.0-47.0); HGB 11.2 g/dl (12.5-16.0); LYMPHOCYTE 44.9 % (15-48); MCHC 32.6 g/dL (32.0-36.0); MCV 89.1 fL (78.0-100.0); MONOCYTE 7.6 % (0-12); MPV 9.4 fL (6.0-9.5); NEUTROPHIL 44.2 % (41-80); NRBC 0; PLT 230 K/uL (150-400); RBC 3.86 M/uL (4.20-5.40); RDW 19.1 % (11.5-14.0); WBC 7.2 K/uL (4.0-10.5)
[2021-11-02 04:15] LABS: ALBUMIN 3.1 g/dL (3.4-5.0); BILIRUBIN - TOTAL 0.2 mg/dL (0.2-1.0); BUN/CREAT RATIO (CALC) 10.6 RATIO; CREATININE 1.13 mg/dL (0.51-0.95); GLOBULIN (CALCULATION) 3.7 g/dL; POTASSIUM 3.6 mmol/L (3.5-5.1); TOTAL PROTEIN 6.8 g/dL (6.4-8.2)
[2021-11-02 04:26] LABS: BILIRUBIN NEGATIVE (NEGATIVE); BLOOD NEGATIVE Ery/uL (NEGATIVE); CLARITY CLEAR (CLEAR); COLOR YELLOW (YELLOW); GLUCOSE (U) NORMAL (NORMAL); LEUKOCYTES NEGATIVE Leu/uL (NEGATIVE); NITRITE NEGATIVE (NEGATIVE); PROTEIN NEGATIVE (NEGATIVE); UROBILINOGEN 0.2 mg/dL (0.2-1.0); pH 7.5 (5.0-9.0)
[2021-11-03] MEDS ORDERED: PEPCID AC20 MG PO (08:32)
[2021-11-03] MEDS ORDERED: ASPIRIN EC81 MG PO (08:45)
== END 2021-11-02 06:42 | disposition home or self-care (01) ==
LOC: FER 02:28
PROVIDERS: Emergency Medicine
DX: R51.9 Headache, unspecified (principal); R10.9 Unspecified abdominal pain; G89.29 Other chronic pain; F17.210 Nicotine dependence, cigarettes, uncomplicated
CPT/HCPCS: 36415; 70450; 80053; 81003; 83690; 84484; 85025; 93005; J1170; J2405

== ENCOUNTER → 2021-11-03 | Day surgery (SDC) | payer MEDICARE ==
[~2021-11-03] VITALS: Ht 167.6 cm; Wt 81.6 kg
[~2021-11-03] MED LIST changes: +PEPCID AC20 MG PO
[2021-11-03 08:48] LABS: HCT 36.4 % (37.0-47.0); HGB 11.9 g/dl (12.5-16.0); MCH 28.9 pg (25.0-31.0); MCHC 32.7 g/dL (32.0-36.0); MCV 88.3 fL (78.0-100.0); MPV 9.8 fL (6.0-9.5); RBC 4.12 M/uL (4.20-5.40); RDW 18.9 % (11.5-14.0); WBC 6.5 K/uL (4.0-10.5)
== END | disposition home or self-care (01) ==
LOC: FAS 10-27 11:00
PROVIDERS: Surgery
DX: D12.3 Benign neoplasm of transverse colon (principal); I78.1 Nevus, non-neoplastic; K62.89 Other specified diseases of anus and rectum; K21.9 Gastro-esophageal reflux disease without esophagitis; I10 Essential (primary) hypertension; I25.2 Old myocardial infarction; J44.9 Chronic obstructive pulmonary disease, unspecified; K57.30 Diverticulosis of large intestine without perforation or abscess without bleeding; F17.210 Nicotine dependence, cigarettes, uncomplicated; K44.9 Diaphragmatic hernia without obstruction or gangrene; D64.9 Anemia, unspecified; K58.0 Irritable bowel syndrome with diarrhea; Z88.0 Allergy status to penicillin; Z88.2 Allergy status to sulfonamides; Z88.7 Allergy status to serum and vaccine; Z88.5 Allergy status to narcotic agent; Z88.8 Allergy status to other drugs, medicaments and biological substances; Z88.1 Allergy status to other antibiotic agents; Z95.5 Presence of coronary angioplasty implant and graft
CPT/HCPCS: 36415; J7120

== ENCOUNTER 2021-11-09 01:54 | Emergency (ER) | payer MEDICARE ==
[2021-11-09 02:45] LABS: BASOPHIL 0.6 % (0-2); EOSINOPHIL 3.4 % (0-7); HCT 35.5 % (37.0-47.0); HGB 11.5 g/dl (12.5-16.0); LYMPHOCYTE 47.6 % (15-48); MCH 28.5 pg (25.0-31.0); MCHC 32.4 g/dL (32.0-36.0); MCV 88.1 fL (78.0-100.0); MONOCYTE 6.7 % (0-12); MPV 9.7 fL (6.0-9.5); NEUTROPHIL 41.4 % (41-80); NRBC 0; PLT 230 K/uL (150-400); RBC 4.03 M/uL (4.20-5.40); RDW 18.6 % (11.5-14.0); WBC 6.6 K/uL (4.0-10.5)
[2021-11-09] MEDS ORDERED: PERCOCET 5-3251 EACH PO (05:53)
[2021-11-09 05:57] LABS: ALBUMIN 3.2 g/dL (3.4-5.0); BILIRUBIN - TOTAL 0.2 mg/dL (0.2-1.0); CREATININE 1.22 mg/dL (0.51-0.95); GLOBULIN (CALCULATION) 3.9 g/dL; POTASSIUM 3.9 mmol/L (3.5-5.1); TOTAL PROTEIN 7.1 g/dL (6.4-8.2)
== END 2021-11-09 06:19 | disposition home or self-care (01) ==
LOC: FER 01:54
PROVIDERS: Internal Medicine
DX: R10.13 Epigastric pain (principal); K62.89 Other specified diseases of anus and rectum; R19.7 Diarrhea, unspecified; I10 Essential (primary) hypertension; J44.9 Chronic obstructive pulmonary disease, unspecified; F17.210 Nicotine dependence, cigarettes, uncomplicated; Z88.0 Allergy status to penicillin; Z88.2 Allergy status to sulfonamides; Z88.1 Allergy status to other antibiotic agents; Z88.8 Allergy status to other drugs, medicaments and biological substances; Z91.012 Allergy to eggs; Z88.7 Allergy status to serum and vaccine; Z91.013 Allergy to seafood; Z88.6 Allergy status to analgesic agent
CPT/HCPCS: 36415; 74018; 80053; 83690; 84484; 85025; 93005; J1170

== ENCOUNTER 2021-11-16 01:24 | Emergency (ER) | payer MEDICARE ==
[2021-11-16 01:56] LABS: HCT 37.1 % (37.0-47.0); HGB 12.3 g/dl (12.5-16.0); MCH 29.4 pg (25.0-31.0); MCHC 33.2 g/dL (32.0-36.0); MCV 88.5 fL (78.0-100.0); MPV 9.9 fL (6.0-9.5); RBC 4.19 M/uL (4.20-5.40); RDW 18.1 % (11.5-14.0); WBC 7.6 K/uL (4.0-10.5)
[2021-11-16 02:15] LABS: BUN/CREAT RATIO (CALC) 11.1 RATIO; CREATININE 1.17 mg/dL (0.51-0.95); POTASSIUM 4.5 mmol/L (3.5-5.1)
== END 2021-11-16 02:45 | disposition home or self-care (01) ==
LOC: FER 01:24
PROVIDERS: Emergency Medicine
DX: R10.9 Unspecified abdominal pain (principal); I10 Essential (primary) hypertension; F17.200 Nicotine dependence, unspecified, uncomplicated; Z79.82 Long term (current) use of aspirin; Z79.899 Other long term (current) drug therapy
CPT/HCPCS: 36415; 71045; 80048; 83690; 84484; 93005

== ENCOUNTER 2021-11-22 15:23 | Emergency (ER) | payer MEDICARE ==
[2021-11-22 16:26] LABS: BASOPHIL 0.6 % (0-2); EOSINOPHIL 2.3 % (0-7); HCT 38.5 % (37.0-47.0); HGB 12.8 g/dl (12.5-16.0); LYMPHOCYTE 37.3 % (15-48); MCHC 33.2 g/dL (32.0-36.0); MCV 87.3 fL (78.0-100.0); MONOCYTE 6.2 % (0-12); MPV 9.7 fL (6.0-9.5); NEUTROPHIL 53.3 % (41-80); NRBC 0; PLT 262 K/uL (150-400); RBC 4.41 M/uL (4.20-5.40); RDW 17.7 % (11.5-14.0)
[2021-11-22 16:57] LABS: ALBUMIN 3.7 g/dL (3.4-5.0); BILIRUBIN - TOTAL 0.2 mg/dL (0.2-1.0); BUN/CREAT RATIO (CALC) 9.7 RATIO; CREATININE 0.93 mg/dL (0.51-0.95); GLOBULIN (CALCULATION) 4.8 g/dL; POTASSIUM 4.1 mmol/L (3.5-5.1); TOTAL PROTEIN 8.5 g/dL (6.4-8.2)
== END 2021-11-22 18:30 | disposition home or self-care (01) ==
LOC: FER 15:23
PROVIDERS: Internal Medicine
DX: R10.13 Epigastric pain (principal); R10.11 Right upper quadrant pain; I10 Essential (primary) hypertension; Z88.0 Allergy status to penicillin; Z88.5 Allergy status to narcotic agent; Z88.7 Allergy status to serum and vaccine
CPT/HCPCS: 36415; 80053; 83690; 84484; 85025; 93005; J1170

== ENCOUNTER 2021-12-11 03:07 | Emergency (ER) | payer MEDICARE ==
[2021-12-11 03:30] LABS: BASOPHIL 0.4 % (0-2); EOSINOPHIL 2.1 % (0-7); HGB 11.9 g/dl (12.5-16.0); LYMPHOCYTE 48.8 % (15-48); MCH 29.2 pg (25.0-31.0); MCHC 33.1 g/dL (32.0-36.0); MCV 88.2 fL (78.0-100.0); MONOCYTE 7.1 % (0-12); MPV 9.8 fL (6.0-9.5); NEUTROPHIL 41.5 % (41-80); NRBC 0; PLT 254 K/uL (150-400); RBC 4.08 M/uL (4.20-5.40); RDW 17.4 % (11.5-14.0); WBC 7.3 K/uL (4.0-10.5)
[2021-12-11 03:53] LABS: ALBUMIN 3.4 g/dL (3.4-5.0); BILIRUBIN - TOTAL 0.1 mg/dL (0.2-1.0); CREATININE 1.14 mg/dL (0.51-0.95); GLOBULIN (CALCULATION) 4.4 g/dL; POTASSIUM 3.9 mmol/L (3.5-5.1); TOTAL PROTEIN 7.8 g/dL (6.4-8.2)
== END 2021-12-11 04:28 | disposition home or self-care (01) ==
LOC: FER 03:07
PROVIDERS: Emergency Medicine
DX: R10.13 Epigastric pain (principal); G89.29 Other chronic pain; I25.10 Atherosclerotic heart disease of native coronary artery without angina pectoris; I10 Essential (primary) hypertension; E11.9 Type 2 diabetes mellitus without complications; Z28.311 Partially vaccinated for COVID-19; Z95.5 Presence of coronary angioplasty implant and graft
CPT/HCPCS: 36415; 80053; 84484; 85025; 93005

== ENCOUNTER 2021-12-13 03:54 | Emergency (ER) | payer MEDICARE ==
[2021-12-13 04:19] LABS: BASOPHIL 0.5 % (0-2); EOSINOPHIL 2.2 % (0-7); HCT 35.4 % (37.0-47.0); HGB 11.7 g/dl (12.5-16.0); LYMPHOCYTE 48.7 % (15-48); MCH 29.3 pg (25.0-31.0); MCHC 33.1 g/dL (32.0-36.0); MCV 88.5 fL (78.0-100.0); MONOCYTE 6.4 % (0-12); MPV 9.6 fL (6.0-9.5); NEUTROPHIL 42.2 % (41-80); NRBC 0; PLT 214 K/uL (150-400); RDW 17.2 % (11.5-14.0)
[2021-12-13 04:39] LABS: ALBUMIN 3.2 g/dL (3.4-5.0); BILIRUBIN - TOTAL 0.1 mg/dL (0.2-1.0); BUN/CREAT RATIO (CALC) 13.1 RATIO; CREATININE 0.99 mg/dL (0.51-0.95); GLOBULIN (CALCULATION) 4.4 g/dL; POTASSIUM 3.8 mmol/L (3.5-5.1); TOTAL PROTEIN 7.6 g/dL (6.4-8.2)
== END 2021-12-13 07:06 | disposition home or self-care (01) ==
LOC: FER 03:54
PROVIDERS: Emergency Medicine
DX: R10.13 Epigastric pain (principal); G89.29 Other chronic pain; I11.0 Hypertensive heart disease with heart failure; I50.9 Heart failure, unspecified; J44.9 Chronic obstructive pulmonary disease, unspecified; F17.200 Nicotine dependence, unspecified, uncomplicated
CPT/HCPCS: 36415; 71045; 80053; 83690; 84484; 85025; 93005

== ENCOUNTER 2021-12-21 21:31 | Emergency (ER) | payer MEDICARE ==
[2021-12-21 22:34] LABS: BASOPHIL 0.7 % (0-2); EOSINOPHIL 2.1 % (0-7); HCT 34.1 % (37.0-47.0); HGB 11.6 g/dl (12.5-16.0); LYMPHOCYTE 46.5 % (15-48); MCH 29.7 pg (25.0-31.0); MCV 87.2 fL (78.0-100.0); MONOCYTE 6.7 % (0-12); MPV 9.8 fL (6.0-9.5); NEUTROPHIL 43.8 % (41-80); NRBC 0; PLT 210 K/uL (150-400); RBC 3.91 M/uL (4.20-5.40); RDW 16.8 % (11.5-14.0); WBC 5.9 K/uL (4.0-10.5)
[2021-12-21 22:49] LABS: INR 1.05 (0.9-1.2); PROTHROMBIN TIME 13.1 SECONDS (11.8-13.4); PTT 24.4 SECONDS (24.4-34.7)
[2021-12-21 22:58] LABS: ALBUMIN 3.3 g/dL (3.4-5.0); BILIRUBIN - TOTAL 0.2 mg/dL (0.2-1.0); BUN/CREAT RATIO (CALC) 11.7 RATIO; CREATININE 1.03 mg/dL (0.51-0.95); MAGNESIUM 1.8 mg/dL (1.8-2.4); POTASSIUM 3.6 mmol/L (3.5-5.1); TOTAL PROTEIN 7.3 g/dL (6.4-8.2)
== END 2021-12-22 02:05 | disposition home or self-care (01) ==
LOC: FER 21:31
PROVIDERS: Internal Medicine
DX: R07.89 Other chest pain (principal); K21.9 Gastro-esophageal reflux disease without esophagitis; I10 Essential (primary) hypertension; I25.10 Atherosclerotic heart disease of native coronary artery without angina pectoris; F17.210 Nicotine dependence, cigarettes, uncomplicated; Z79.82 Long term (current) use of aspirin; Z79.899 Other long term (current) drug therapy
CPT/HCPCS: 36415; 71045; 80053; 83690; 83735; 84145; 84484; 85025; 85610; 85730; 93005; J1170

== ENCOUNTER 2022-01-09 02:50 | Emergency (ER) | payer MEDICARE ==
[2022-01-09 03:29] LABS: BASOPHIL 0.6 % (0-2); EOSINOPHIL 2.4 % (0-7); HCT 35.4 % (37.0-47.0); LYMPHOCYTE 50.4 % (15-48); MCHC 33.9 g/dL (32.0-36.0); MCV 88.5 fL (78.0-100.0); MONOCYTE 8.4 % (0-12); MPV 9.8 fL (6.0-9.5); NEUTROPHIL 38.1 % (41-80); NRBC 0; PLT 235 K/uL (150-400); WBC 7.2 K/uL (4.0-10.5)
[2022-01-09 03:45] LABS: ALBUMIN 3.6 g/dL (3.4-5.0); BILIRUBIN - TOTAL 0.3 mg/dL (0.2-1.0); BUN/CREAT RATIO (CALC) 14.9 RATIO; CREATININE 1.21 mg/dL (0.51-0.95); GLOBULIN (CALCULATION) 4.1 g/dL; POTASSIUM 3.6 mmol/L (3.5-5.1); TOTAL PROTEIN 7.7 g/dL (6.4-8.2)
[2022-01-09] MEDS ORDERED: PERCOCET 5-3251 EACH PO (06:18)
== END 2022-01-09 05:52 | disposition home or self-care (01) ==
LOC: FER 02:50
PROVIDERS: Internal Medicine
DX: K21.9 Gastro-esophageal reflux disease without esophagitis (principal); I25.10 Atherosclerotic heart disease of native coronary artery without angina pectoris; I25.2 Old myocardial infarction; I10 Essential (primary) hypertension; F17.210 Nicotine dependence, cigarettes, uncomplicated; Z95.5 Presence of coronary angioplasty implant and graft; Z88.0 Allergy status to penicillin; Z88.2 Allergy status to sulfonamides; Z88.5 Allergy status to narcotic agent; Z88.7 Allergy status to serum and vaccine; Z91.012 Allergy to eggs
CPT/HCPCS: 36415; 80053; 83690; 84484; 85025; 93005

== ENCOUNTER 2022-01-23 20:34 | Emergency (ER) | payer MEDICARE ==
[~2022-01-23 20:34] MED LIST changes: +ATARAX25 MG PO; +DIFICID200 MG PO; +DRY EYE RELIEF15 ML EYEBOTH; +HCTZ12.5 MG PO; -HCTZ25 MG PO; -KLOR-CON M20 T20 MEQ PO; +KLOR-CON M2020 MEQ PO; +TRAZODONE 50MG50 MG PO; -VITAMIN D310 MC4 PO; +VITAMIN D3125 MC1 PO; +[UNRECOGNIZED DRUG - OTHER] PO
== END 2022-01-23 20:55 | disposition left against medical advice (07) ==
LOC: FER 20:34
DX: Z01.30 Encounter for examination of blood pressure without abnormal findings (principal); Z53.29 Procedure and treatment not carried out because of patient's decision for other reasons
CPT/HCPCS: 99281

== ENCOUNTER 2022-02-01 01:56 | Emergency (ER) | payer MEDICARE ==
[2022-02-01 03:09] LABS: BASOPHIL 0.7 % (0-2); HCT 34.8 % (37.0-47.0); HGB 11.5 g/dl (12.5-16.0); LYMPHOCYTE 46.7 % (15-48); MCH 29.4 pg (25.0-31.0); MONOCYTE 7.6 % (0-12); MPV 10.2 fL (6.0-9.5); NEUTROPHIL 42.6 % (41-80); NRBC 0; PLT 244 K/uL (150-400); RBC 3.91 M/uL (4.20-5.40); RDW 16.8 % (11.5-14.0); WBC 7.5 K/uL (4.0-10.5)
[2022-02-01 03:21] LABS: ALBUMIN 3.3 g/dL (3.4-5.0); BILIRUBIN - TOTAL 0.2 mg/dL (0.2-1.0); GLOBULIN (CALCULATION) 4.1 g/dL; POTASSIUM 3.7 mmol/L (3.5-5.1); TOTAL PROTEIN 7.4 g/dL (6.4-8.2)
== END 2022-02-01 03:59 | disposition left against medical advice (07) ==
LOC: FER 01:56
PROVIDERS: Emergency Medicine
DX: M27.8 Other specified diseases of jaws (principal); R07.89 Other chest pain; I10 Essential (primary) hypertension; I25.10 Atherosclerotic heart disease of native coronary artery without angina pectoris; F17.200 Nicotine dependence, unspecified, uncomplicated; Z95.5 Presence of coronary angioplasty implant and graft
CPT/HCPCS: 36415; 80053; 84145; 84484; 85025; 93005

== ENCOUNTER 2022-02-06 23:58 | Emergency (ER) | payer MEDICARE ==
[2022-02-07 03:07] LABS: ALBUMIN 3.3 g/dL (3.4-5.0); BILIRUBIN - TOTAL 0.3 mg/dL (0.2-1.0); BUN/CREAT RATIO (CALC) 17.8 RATIO; CREATININE 1.07 mg/dL (0.51-0.95); GLOBULIN (CALCULATION) 3.9 g/dL; POTASSIUM 3.8 mmol/L (3.5-5.1); TOTAL PROTEIN 7.2 g/dL (6.4-8.2)
[2022-02-07 03:09] LABS: BASOPHIL 0.6 % (0-2); EOSINOPHIL 1.9 % (0-7); HCT 33.6 % (37.0-47.0); HGB 11.3 g/dl (12.5-16.0); LYMPHOCYTE 49.1 % (15-48); MCH 29.5 pg (25.0-31.0); MCHC 33.6 g/dL (32.0-36.0); MCV 87.7 fL (78.0-100.0); MONOCYTE 6.6 % (0-12); MPV 9.9 fL (6.0-9.5); NEUTROPHIL 41.6 % (41-80); NRBC 0; PLT 253 K/uL (150-400); RBC 3.83 M/uL (4.20-5.40); RDW 16.2 % (11.5-14.0); WBC 6.4 K/uL (4.0-10.5)
[2022-02-07] MEDS ORDERED: PERCOCET 5-3251 EACH PO (04:52)
[2022-02-07 06:54] LABS: BUN/CREAT RATIO (CALC) 17.2 RATIO; CREATININE 0.99 mg/dL (0.51-0.95); POTASSIUM 3.7 mmol/L (3.5-5.1)
== END 2022-02-07 07:54 | disposition home or self-care (01) ==
LOC: FER 23:58
PROVIDERS: Internal Medicine
DX: K21.9 Gastro-esophageal reflux disease without esophagitis (principal); E87.1 Hypo-osmolality and hyponatremia; F17.210 Nicotine dependence, cigarettes, uncomplicated; I10 Essential (primary) hypertension; Z88.0 Allergy status to penicillin; Z88.1 Allergy status to other antibiotic agents; Z88.2 Allergy status to sulfonamides; Z88.5 Allergy status to narcotic agent; Z88.7 Allergy status to serum and vaccine; Z88.8 Allergy status to other drugs, medicaments and biological substances
CPT/HCPCS: 36415; 80048; 80053; 83690; 84484; 85025; 93005; J7030

== ENCOUNTER 2022-03-18 02:40 | Emergency (ER) | payer OTHER | END 2022-03-18 03:07 | disposition home or self-care (01) | LOC: FER 02:40 | DX: L50.9 Urticaria, unspecified (principal); I10 Essential (primary) hypertension; F17.200 Nicotine dependence, unspecified, uncomplicated; Z88.0 Allergy status to penicillin; Z88.7 Allergy status to serum and vaccine; Z88.6 Allergy status to analgesic agent; Z88.1 Allergy status to other antibiotic agents; Z91.041 Radiographic dye allergy status | CPT/HCPCS: 99282 ==

== ENCOUNTER 2022-03-23 02:55 | Emergency (ER) | payer OTHER ==
[2022-03-23] MEDS ORDERED: HYDRALAZINE25 MG PO (03:35)
== END 2022-03-23 04:28 | disposition home or self-care (01) ==
LOC: FER 02:55
DX: I10 Essential (primary) hypertension (principal); I25.10 Atherosclerotic heart disease of native coronary artery without angina pectoris; F17.200 Nicotine dependence, unspecified, uncomplicated; Z95.5 Presence of coronary angioplasty implant and graft
CPT/HCPCS: 99283

== ENCOUNTER 2022-04-02 04:02 | Emergency (ER) | payer OTHER ==
[~2022-04-02 04:02] MED LIST changes: +HYDRALAZINE25 MG PO
[2022-04-02 04:37] LABS: BASOPHIL 0.5 % (0-2); EOSINOPHIL 1.1 % (0-7); HCT 35.2 % (37.0-47.0); HGB 11.3 g/dl (12.5-16.0); LYMPHOCYTE 40.3 % (15-48); MCH 29.5 pg (25.0-31.0); MCHC 32.1 g/dL (32.0-36.0); MCV 91.9 fL (78.0-100.0); MPV 10.1 fL (6.0-9.5); NEUTROPHIL 51.7 % (41-80); NRBC 0; PLT 212 K/uL (150-400); RBC 3.83 M/uL (4.20-5.40); RDW 17.1 % (11.5-14.0); WBC 7.5 K/uL (4.0-10.5)
[2022-04-02 04:54] LABS: ACETAMINOPHEN (TYLENOL) < 2.0 ug/mL (10.0-30.0); ALBUMIN 3.3 g/dL (3.4-5.0); ALKALINE PHOSHATASE 85 U/L (46-116); ALT 25 U/L (14-59); AST 10 U/L (15-37); BILIRUBIN - TOTAL 0.2 mg/dL (0.2-1.0); BUN 9 mg/dL (7-18); BUN/CREAT RATIO (CALC) 9.7 RATIO; CHLORIDE 97 mmol/L (98-107); CO2 (BICARBONATE) 26 mmol/L (21-32); CREATININE 0.93 mg/dL (0.51-0.95); GLUCOSE 109 mg/dL (74-106); POTASSIUM 4.3 mmol/L (3.5-5.1); TOTAL PROTEIN 7.3 g/dL (6.4-8.2)
== END 2022-04-02 05:13 | disposition home or self-care (01) ==
LOC: FER 04:02
PROVIDERS: Emergency Medicine
DX: Z00.8 Encounter for other general examination (principal); I10 Essential (primary) hypertension; F17.200 Nicotine dependence, unspecified, uncomplicated; Z88.0 Allergy status to penicillin; Z88.7 Allergy status to serum and vaccine; Z88.6 Allergy status to analgesic agent; Z88.8 Allergy status to other drugs, medicaments and biological substances; Z91.041 Radiographic dye allergy status
CPT/HCPCS: 36415; 80053; 84484; 85025; 93005; G0480

== ENCOUNTER 2022-04-05 20:09 | Emergency (ER) | payer OTHER ==
[2022-04-05 21:19] LABS: HCT 36.1 % (37.0-47.0); MCH 30.2 pg (25.0-31.0); MCHC 33.2 g/dL (32.0-36.0); MCV 90.9 fL (78.0-100.0); MPV 10.4 fL (6.0-9.5); RBC 3.97 M/uL (4.20-5.40); RDW 17.2 % (11.5-14.0); WBC 7.2 K/uL (4.0-10.5)
[2022-04-05 21:53] LABS: BUN/CREAT RATIO (CALC) 9.9 RATIO; CREATININE 0.81 mg/dL (0.51-0.95); POTASSIUM 4.4 mmol/L (3.5-5.1)
== END 2022-04-05 23:15 | disposition home or self-care (01) ==
LOC: FER 20:09
PROVIDERS: Emergency Medicine
DX: K21.9 Gastro-esophageal reflux disease without esophagitis (principal); I10 Essential (primary) hypertension; Z88.6 Allergy status to analgesic agent; Z88.8 Allergy status to other drugs, medicaments and biological substances; Z88.2 Allergy status to sulfonamides; Z88.0 Allergy status to penicillin; Z88.1 Allergy status to other antibiotic agents; Z88.7 Allergy status to serum and vaccine; Z91.041 Radiographic dye allergy status; Z79.899 Other long term (current) drug therapy
CPT/HCPCS: 36415; 80048; 84484; 93005; J1885

== ENCOUNTER 2022-04-07 00:23 | Emergency (ER) | payer OTHER | END 2022-04-07 03:02 | disposition home or self-care (01) | LOC: FER 00:23 | DX: G43.909 Migraine, unspecified, not intractable, without status migrainosus (principal); Z88.0 Allergy status to penicillin; Z88.7 Allergy status to serum and vaccine; Z91.041 Radiographic dye allergy status | CPT/HCPCS: 96372; 99283; J1885; J2405 ==

== ENCOUNTER 2022-04-08 23:41 | Emergency (ER) | payer OTHER ==
[2022-04-09 01:29] LABS: HCT 35.1 % (37.0-47.0); HGB 11.4 g/dl (12.5-16.0); MCH 30.4 pg (25.0-31.0); MCHC 32.5 g/dL (32.0-36.0); MCV 93.6 fL (78.0-100.0); MPV 9.9 fL (6.0-9.5); RBC 3.75 M/uL (4.20-5.40); RDW 17.9 % (11.5-14.0); WBC 6.2 K/uL (4.0-10.5)
[2022-04-09 01:55] LABS: BUN/CREAT RATIO (CALC) 15.4 RATIO; CREATININE 0.91 mg/dL (0.51-0.95); POTASSIUM 4.1 mmol/L (3.5-5.1)
== END 2022-04-09 02:20 | disposition home or self-care (01) ==
LOC: FER 23:41
PROVIDERS: Emergency Medicine
DX: R51.9 Headache, unspecified (principal); R12 Heartburn; M54.31 Sciatica, right side; I10 Essential (primary) hypertension; E78.5 Hyperlipidemia, unspecified; K21.9 Gastro-esophageal reflux disease without esophagitis; F17.200 Nicotine dependence, unspecified, uncomplicated; Z88.0 Allergy status to penicillin; Z88.2 Allergy status to sulfonamides; Z88.7 Allergy status to serum and vaccine; Z88.5 Allergy status to narcotic agent; Z88.6 Allergy status to analgesic agent; Z88.8 Allergy status to other drugs, medicaments and biological substances; Z79.899 Other long term (current) drug therapy
CPT/HCPCS: 36415; 80048; 84484; 93005; J1885

== ENCOUNTER 2022-04-11 00:06 | Emergency (ER) | payer OTHER ==
[2022-04-11 03:47] LABS: BASOPHIL 0.4 % (0-2); EOSINOPHIL 1.7 % (0-7); HCT 35.3 % (37.0-47.0); HGB 11.6 g/dl (12.5-16.0); LYMPHOCYTE 47.2 % (15-48); MCH 30.7 pg (25.0-31.0); MCHC 32.9 g/dL (32.0-36.0); MCV 93.4 fL (78.0-100.0); MONOCYTE 6.6 % (0-12); MPV 10.2 fL (6.0-9.5); NEUTROPHIL 43.5 % (41-80); NRBC 0; PLT 233 K/uL (150-400); RBC 3.78 M/uL (4.20-5.40); RDW 18.6 % (11.5-14.0)
[2022-04-11 03:58] LABS: ALBUMIN 3.4 g/dL (3.4-5.0); BILIRUBIN - TOTAL 0.3 mg/dL (0.2-1.0); BUN/CREAT RATIO (CALC) 13.9 RATIO; CREATININE 1.01 mg/dL (0.51-0.95); GLOBULIN (CALCULATION) 3.3 g/dL; MAGNESIUM 1.9 mg/dL (1.8-2.4); POTASSIUM 4.4 mmol/L (3.5-5.1); TOTAL PROTEIN 6.7 g/dL (6.4-8.2)
[2022-04-11 04:24] LABS: BILIRUBIN NEGATIVE (NEGATIVE); BLOOD NEGATIVE Ery/uL (NEGATIVE); CLARITY CLEAR (CLEAR); COLOR YELLOW (YELLOW); GLUCOSE (U) NORMAL (NORMAL); LEUKOCYTES NEGATIVE Leu/uL (NEGATIVE); NITRITE NEGATIVE (NEGATIVE); PROTEIN NEGATIVE (NEGATIVE); UROBILINOGEN 0.2 mg/dL (0.2-1.0); pH 7.5 (5.0-9.0)
[2022-04-11] MEDS ORDERED: PERCOCET 5-3251 EACH PO (05:10)
[2022-04-11] MEDS ORDERED: MEDROL 4MG DOSEP4 MG PO (05:10)
== END 2022-04-11 05:35 | disposition home or self-care (01) ==
LOC: FER 00:06
PROVIDERS: Internal Medicine
DX: M54.41 Lumbago with sciatica, right side (principal); K21.9 Gastro-esophageal reflux disease without esophagitis; I10 Essential (primary) hypertension
CPT/HCPCS: 36415; 80053; 81003; 83735; 85025; J1170; J2405

== ENCOUNTER 2022-04-13 01:27 | Emergency (ER) | payer OTHER ==
[2022-04-13 02:40] LABS: BASOPHIL 0.6 % (0-2); EOSINOPHIL 1.6 % (0-7); HCT 35.6 % (37.0-47.0); HGB 11.7 g/dl (12.5-16.0); LYMPHOCYTE 41.8 % (15-48); MCH 30.7 pg (25.0-31.0); MCHC 32.9 g/dL (32.0-36.0); MCV 93.4 fL (78.0-100.0); MONOCYTE 7.7 % (0-12); NEUTROPHIL 47.9 % (41-80); NRBC 0; PLT 223 K/uL (150-400); RBC 3.81 M/uL (4.20-5.40); RDW 18.7 % (11.5-14.0); WBC 7.1 K/uL (4.0-10.5)
[2022-04-13 03:02] LABS: ALBUMIN 3.3 g/dL (3.4-5.0); BILIRUBIN - TOTAL 0.2 mg/dL (0.2-1.0); BUN/CREAT RATIO (CALC) 10.3 RATIO; CREATININE 0.87 mg/dL (0.51-0.95); GLOBULIN (CALCULATION) 3.4 g/dL; POTASSIUM 4.4 mmol/L (3.5-5.1); TOTAL PROTEIN 6.7 g/dL (6.4-8.2)
[2022-04-13 03:16] LABS: CORONAVIRUS 2019 SARS-COV-2 NEGATIVE (NEGATIVE); INFLUENZA A NAA NEGATIVE (NEGATIVE)
[2022-04-13] MEDS ORDERED: PERCOCET 5-3251 EACH PO (04:10)
== END 2022-04-13 04:50 | disposition home or self-care (01) ==
LOC: FER 01:27
PROVIDERS: Internal Medicine
DX: K21.9 Gastro-esophageal reflux disease without esophagitis (principal); I10 Essential (primary) hypertension; I25.10 Atherosclerotic heart disease of native coronary artery without angina pectoris; Z20.822 Contact with and (suspected) exposure to COVID-19; Z95.5 Presence of coronary angioplasty implant and graft
CPT/HCPCS: 36415; 80053; 83690; 84484; 85025; 93005; C9113; J1170; U0002

== ENCOUNTER 2022-04-21 01:10 | Emergency (ER) | payer OTHER | END 2022-04-21 03:00 | disposition left against medical advice (07) | LOC: FER 01:10 | DX: Z53.21 Procedure and treatment not carried out due to patient leaving prior to being seen by health care provider (principal) | CPT/HCPCS: 93005 ==

== ENCOUNTER 2022-04-30 06:55 | Emergency (ER) | payer OTHER ==
[2022-04-30 07:41] LABS: BILIRUBIN 2+ mg/dL (NEGATIVE); BLOOD 3+ Ery/uL (NEGATIVE); GLUCOSE (U) TRACE mg/dL (NORMAL); LEUKOCYTES 3+ Leu/uL (NEGATIVE); NITRITE POSITIVE (NEGATIVE); PROTEIN 3+ mg/dL (NEGATIVE); SPECIFIC GRAVITY 1.015 (1.001-1.030)
[2022-04-30 07:57] LABS: CLARITY CLOUDY (CLEAR); COLOR RED (YELLOW)
[2022-04-30 07:59] LABS: URINARY RBC TNTC
[2022-04-30 08:57] LABS: BASOPHIL 0.5 % (0-2); EOSINOPHIL 0.8 % (0-7); HCT 39.5 % (37.0-47.0); HGB 13.1 g/dl (12.5-16.0); LYMPHOCYTE 32.3 % (15-48); MCH 31.6 pg (25.0-31.0); MCHC 33.2 g/dL (32.0-36.0); MCV 95.2 fL (78.0-100.0); MONOCYTE 8.2 % (0-12); MPV 9.9 fL (6.0-9.5); NEUTROPHIL 57.8 % (41-80); NRBC 0; PLT 204 K/uL (150-400); RBC 4.15 M/uL (4.20-5.40); RDW 18.6 % (11.5-14.0); WBC 7.8 K/uL (4.0-10.5)
[2022-04-30 09:06] LABS: INR 0.99 (0.9-1.2); PROTHROMBIN TIME 12.8 SECONDS (11.9-13.9)
[2022-04-30 09:20] LABS: ALBUMIN 3.3 g/dL (3.4-5.0); BILIRUBIN - TOTAL 0.2 mg/dL (0.2-1.0); BUN/CREAT RATIO (CALC) 15.9 RATIO; CREATININE 0.88 mg/dL (0.51-0.95); GLOBULIN (CALCULATION) 3.7 g/dL; POTASSIUM 3.8 mmol/L (3.5-5.1)
[2022-04-30] MEDS ORDERED: PERCOCET 5-3251 EACH PO (12:32)
[2022-04-30] MEDS ORDERED: CIPRO500 MG PO (12:32)
== END 2022-04-30 12:40 | disposition home or self-care (01) ==
LOC: FER 06:55
PROVIDERS: Emergency Medicine
DX: N30.91 Cystitis, unspecified with hematuria (principal); I12.9 Hypertensive chronic kidney disease with stage 1 through stage 4 chronic kidney disease, or unspecified chronic kidney disease; N18.2 Chronic kidney disease, stage 2 (mild); Z88.2 Allergy status to sulfonamides; Z88.0 Allergy status to penicillin; Z88.5 Allergy status to narcotic agent; Z88.7 Allergy status to serum and vaccine; Z88.1 Allergy status to other antibiotic agents; Z91.012 Allergy to eggs; Z91.041 Radiographic dye allergy status; Z79.02 Long term (current) use of antithrombotics/antiplatelets
CPT/HCPCS: 36415; 76830; 80053; 81001; 83690; 85025; 85610; 85730; 87088; 93005; J1170; J1885; J1956; J2405; Q9967

== ENCOUNTER 2022-05-12 01:23 | Emergency (ER) | payer OTHER ==
[~2022-05-12 01:23] MED LIST changes: +CIPRO500 MG PO
== END 2022-05-12 03:08 | disposition home or self-care (01) ==
LOC: FER 01:23
DX: K21.9 Gastro-esophageal reflux disease without esophagitis (principal); M54.41 Lumbago with sciatica, right side; I10 Essential (primary) hypertension; J44.9 Chronic obstructive pulmonary disease, unspecified; F17.200 Nicotine dependence, unspecified, uncomplicated; Z88.0 Allergy status to penicillin; Z88.2 Allergy status to sulfonamides
CPT/HCPCS: 96372; 99283; J1030; J1885

== ENCOUNTER 2022-05-15 02:34 | Emergency (ER) | payer OTHER | END 2022-05-15 04:01 | disposition home or self-care (01) | LOC: FER 02:34 | DX: I10 Essential (primary) hypertension (principal); K30 Functional dyspepsia; I25.10 Atherosclerotic heart disease of native coronary artery without angina pectoris; Z90.49 Acquired absence of other specified parts of digestive tract; F17.200 Nicotine dependence, unspecified, uncomplicated; Z88.5 Allergy status to narcotic agent; Z88.0 Allergy status to penicillin | CPT/HCPCS: 99283 ==

== ENCOUNTER 2022-05-21 03:21 | Emergency (ER) | payer OTHER ==
[2022-05-21] MEDS ORDERED: ONDANSETRON ODT4 MG PO (05:42)
== END 2022-05-21 05:50 | disposition home or self-care (01) ==
LOC: FER 03:21
DX: G43.909 Migraine, unspecified, not intractable, without status migrainosus (principal); K29.70 Gastritis, unspecified, without bleeding; I10 Essential (primary) hypertension; Z88.0 Allergy status to penicillin; Z28.311 Partially vaccinated for COVID-19; Z88.5 Allergy status to narcotic agent; Z91.048 Other nonmedicinal substance allergy status; Z88.7 Allergy status to serum and vaccine
CPT/HCPCS: 99283; J1885

== ENCOUNTER 2022-05-25 13:30 | Emergency (ER) | payer OTHER ==
[2022-05-25 15:04] LABS: BASOPHIL 0.5 % (0-2); HCT 41.7 % (37.0-47.0); HGB 14.2 g/dl (12.5-16.0); LYMPHOCYTE 38.2 % (15-48); MCH 31.7 pg (25.0-31.0); MCHC 34.1 g/dL (32.0-36.0); MCV 93.1 fL (78.0-100.0); MONOCYTE 6.9 % (0-12); MPV 11.5 fL (6.0-9.5); NEUTROPHIL 53.1 % (41-80); NRBC 0; PLT 300 K/uL (150-400); RBC 4.48 M/uL (4.20-5.40); RDW 18.4 % (11.5-14.0); WBC 6.1 K/uL (4.0-10.5)
[2022-05-25 15:49] LABS: ALBUMIN 3.5 g/dL (3.4-5.0); BILIRUBIN - TOTAL 0.2 mg/dL (0.2-1.0); BUN/CREAT RATIO (CALC) 12.1 RATIO; CREATININE 0.91 mg/dL (0.51-0.95); POTASSIUM 3.9 mmol/L (3.5-5.1); TOTAL PROTEIN 7.5 g/dL (6.4-8.2)
== END 2022-05-25 17:40 | disposition home or self-care (01) ==
LOC: FER 13:30
PROVIDERS: Emergency Medicine
DX: R51.9 Headache, unspecified (principal); R03.0 Elevated blood-pressure reading, without diagnosis of hypertension
CPT/HCPCS: 36415; 70450; 71045; 80053; 84484; 85025; 93005; J0780; J1170; J2405